=== PATIENT | female | born 1940 | race African-American/Black ===

== ENCOUNTER 2017-01-22 05:12 | Inpatient (IN) | payer MEDICARE, MEDICAID ==
[2017-01-22] VITALS (18 sets, daily range): BP systolic 108–165; BP diastolic 40–93
[~2017-01-22] VITALS: Ht 162.6 cm; Wt 74.4 kg
[~2017-01-22 05:12] MED LIST: BACL-141 PO; BENA20TA3 PO; BUDE6.9H IH; DIGO250T81 PO; DILT240C92 PO; FURO-151 PO; GABA-533 PO; HYDR-3933 PO; INSU3INS8 SQ; LEFL20TA17 PO; LEVA1.2526 NEB; OMEP20CA10 PO; POTA20TA82 PO; PRAV20TA57 PO; PRO-AIR IH; SITA1TAB4 PO; TIOT18CA3 IH; WARF4TAB40 PO
[2017-01-22] MEDS ORDERED: ONDANSETRON HCL 4MG/2ML VIAL IV STA (05:26)
[2017-01-22] MEDS ORDERED: SODIUM CHLORIDE 0.9% 1,000 ML IV ONE (05:26)
[2017-01-22] MEDS ORDERED: ASPIRIN 81MG TABLET PO ONE (05:30)
[2017-01-22] MEDS ORDERED: NITROGLYCERIN OINT 1GM/INCH UDPKT TD ONE (05:30)
[2017-01-22] MEDS ORDERED: DILTIAZEM HCL 5MG/ML 5ML VIAL IV ONE ×2 (05:30→09:15)
[2017-01-22 05:53] LABS: BASOPHILS % 0.8 % (0.0-2.0); DIFFERENTIAL COMMENT 0; EOSINOPHILS % 1.8 % (0.0-5.0); HEMATOCRIT. 38.8 % (36.0-48.0); HEMOGLOBIN. 12.6 g/dL (12.0-16.0); LYMPHOCYTES % 14.8 % (20.0-50.0); MEAN CORPUSCULAR HEMOGLOBIN 28.4 pg (28.0-32.0); MEAN CORPUSCULAR HGB CONC 32.4 g/dL (31.0-37.0); MEAN CORPUSCULAR VOLUME 87.6 fL (81.0-99.0); MEAN PLATELET VOLUME 9.4 fl (7.4-10.4); NEUTROPHILS % 73.6 % (40.0-76.0); PLATELET 286 x1000/uL (130-400); RED BLOOD CELL COUNT 4.43 mill/uL (4.2-5.4); RED CELL DISTRIBUTION WIDTH 15.2 % (11.6-14.6); WHITE BLOOD COUNT 15.7 x1000/uL (4.5-11.0)
[2017-01-22 06:12] LABS: ALANINE AMINOTRANSFERASE 23 IU/L (13-61); ALBUMIN 2.8 g/dL (3.4-5.0); ANION GAP 16; CALCIUM 8.7 mg/dL (8.5-10.1); CARBON DIOXIDE 30 mEq/L (21-32); CHLORIDE 96 mEq/L (98-107); ETHANOL BLOOD < 10 mg/dL; INDEX HEMOLYSI 1 (1-3); INDEX ICTERIC 1 (1-4); INDEX LIPEMIC 1 (1-3); LIPASE 72 IU/L (73-393); TROPONIN I < 0.02 ng/mL (0.00-0.04); UREA NITROGEN BLOOD 9 mg/dL (7-21); eGFR > 60 mL/min (>60)
[2017-01-22 06:18] LABS: BG BASE EXCESS 2.2 mmol/L (-2.0-2.0); BG CARBOXYHEMOGLOBIN 1.3 % (0.5-1.5); BG FRACTION INSPIRED OXYGEN 32; BG METHEMOGLOBIN 0.3 % (0.0-1.5); BG OXYGEN SATURATION 95.9 % (92.0-98.5); BG OXYHEMOGLOBIN 94.4 % (94.0-97.0); BG PCO2 47.8 mmHg (35.0-45.0); BG PH 7.385 (7.350-7.450); BG PO2 82.7 mmHg (75.0-100.0); BG SAMPLE SITE RIGHT BRACHIAL; BG TOTAL HEMOGLOBIN 13.6 g/dL (12.0-18.0); BG VENT MODE NASAL CANNULA
[2017-01-22 06:23] LABS: DIGOXIN 0.7 ng/mL (0.9-2.0)
[2017-01-22 06:29] LABS: INR 1.8; PROTHROMBIN TIME 19.2 sec
[2017-01-22 07:13] LABS: CLARITY URINE CLOUDY (CLEAR); COLOR URINE YELLOW (YELLOW); GLUCOSE URINE NEGATIVE (NEGATIVE); KETONES URINE TRACE (NEGATIVE); LEUKOCYTE ESTERASE URINE 3+ (NEGATIVE); NITRITE URINE NEGATIVE (NEGATIVE); OCCULT BLOOD URINE 1+ (NEGATIVE); PROTEIN URINE 2+ (NEGATIVE); SPECIFIC GRAVITY URINE 1.025 (1.005-1.030)
[2017-01-22] MEDS ORDERED: IPRATROPIUM/ALBUTEROL 0.5-3(2.5)MG/3ML NEB HHN ONE ×2 (07:15→09:15)
[2017-01-22] MEDS ORDERED: METHYLPREDNISOLONE SOD SUCC 125 MG/2 ML VIAL IV ONE (07:15)
[2017-01-22 07:26] LABS: *AMPHETAMINES SCREEN URINE NEGATIVE (NEGATIVE); *BARBITURATES SCREEN URINE NEGATIVE (NEGATIVE); *BENZODIAZEPINES SCREEN URINE NEGATIVE (NEGATIVE); *COCAINE SCREEN URINE NEGATIVE (NEGATIVE); CANNABINOID URINE SCREEN NEGATIVE (NEGATIVE); ECSTASY MDMA SCREEN URINE NEGATIVE (NEGATIVE); METHADONE URINE SCREEN NEGATIVE (NEGATIVE); OPIATES URINE SCREEN PRESUMTIVE POSITIVE (NEGATIVE); PHENCYCLIDINE URINE SCREEN NEGATIVE (NEGATIVE)
[2017-01-22 07:31] LABS: SQUAMOUS EPITHELIAL CELL URINE FEW /lpf (RARE/1+); WBC URINE TNTC /hpf (0-2)
[2017-01-22 07:32] LABS: BACTERIA URINE 3+
[2017-01-22] MEDS ORDERED: FUROSEMIDE 40MG/4ML VIAL IVP ONE (09:45)
[2017-01-22 11:03] LABS: BG BASE EXCESS 0.5 mmol/L (-2.0-2.0); BG BILEVEL POS AIRWAY PRESSURE 15/5; BG CARBOXYHEMOGLOBIN 0.8 % (0.5-1.5); BG DEOXYHEMOGLOBIN 2.2 % (0.0-5.0); BG FRACTION INSPIRED OXYGEN 40; BG HCO3 ACT 27.3 mmol/L (22.0-26.0); BG METHEMOGLOBIN 0.3 % (0.0-1.5); BG OXYGEN SATURATION 97.8 % (92.0-98.5); BG OXYHEMOGLOBIN 96.7 % (94.0-97.0); BG PCO2 53.5 mmHg (35.0-45.0); BG PH 7.326 (7.350-7.450); BG PO2 115.3 mmHg (75.0-100.0); BG SAMPLE SITE RIGHT BRACHIAL; BG TOTAL HEMOGLOBIN 12.9 g/dL (12.0-18.0); BG VENT MODE MASK - BIPAP
[2017-01-22] MEDS ORDERED: DEXTROSE 50% WATER 50ML SYRINGE IV PRN (17:00)
[2017-01-22] MEDS ORDERED: NON FORMULARY PATIENT HOME MED EA XX SCH ×4 (17:00)
[2017-01-22] MEDS: BLOOD SUGAR DIAGNOSTIC STRIP TEST SCH (17:30)
[2017-01-22 18:00] LABS: BG BASE EXCESS 1.5 mmol/L (-2.0-2.0); BG DEOXYHEMOGLOBIN 6.2 % (0.0-5.0); BG FRACTION INSPIRED OXYGEN 50; BG HCO3 ACT 27.9 mmol/L (22.0-26.0); BG METHEMOGLOBIN 0.3 % (0.0-1.5); BG OXYGEN SATURATION 93.7 % (92.0-98.5); BG OXYHEMOGLOBIN 92.5 % (94.0-97.0); BG PCO2 51.1 mmHg (35.0-45.0); BG PH 7.355 (7.350-7.450); BG PO2 72.9 mmHg (75.0-100.0); BG SAMPLE SITE RIGHT BRACHIAL; BG TOTAL HEMOGLOBIN 13.2 g/dL (12.0-18.0); BG VENT MODE MASK - VENTI
[2017-01-22] MEDS ORDERED: LEFLUNOMIDE 20MG TABLET PO SCH (18:30)
[2017-01-22] MEDS: INSULIN LISPRO 100 UNITS/ML SUBCUT SCH (18:43)
[2017-01-22] MEDS: METFORMIN HCL 500MG TABLET PO SCH (18:45)
[2017-01-22] MEDS: DILTIAZEM HCL 60MG TABLET PO SCH ×2 (18:45→23:36)
[2017-01-22] MEDS: WARFARIN SODIUM 4MG TABLET PO SCH (18:45)
[2017-01-22] MEDS: DIGOXIN 125MCG TABLET PO SCH (18:45)
[2017-01-22] MEDS: DOCUSATE SODIUM 100MG CAPSULE PO SCH (18:46)
[2017-01-22] MEDS: IPRATROPIUM/ALBUTEROL 0.5-3(2.5)MG/3ML NEB HHN SCH (20:20)
[2017-01-22] MEDS: BACLOFEN 10MG TABLET PO SCH (21:32)
[2017-01-22] MEDS: ATORVASTATIN CALCIUM 10MG TABLET PO SCH (21:32)
[2017-01-22] MEDS: FUROSEMIDE 40MG/4ML VIAL IVP SCH (21:38)
[2017-01-22] MEDS: LEVOFLOXACIN 500MG PREMIX 100 ML IV SCH (23:31)
[2017-01-23] VITALS (11 sets, daily range): BP systolic 85–154; BP diastolic 43–78
[2017-01-23] MEDS: IPRATROPIUM/ALBUTEROL 0.5-3(2.5)MG/3ML NEB HHN SCH ×5 (00:15→20:08)
[2017-01-23] MEDS: DILTIAZEM HCL 60MG TABLET PO SCH ×3 (06:00→17:05)
[2017-01-23 06:35] LABS: GLUCOSE URINE 3+ (NEGATIVE); KETONES URINE 1+ (NEGATIVE); LEUKOCYTE ESTERASE URINE 3+ (NEGATIVE); NITRITE URINE NEGATIVE (NEGATIVE); OCCULT BLOOD URINE 2+ (NEGATIVE); PH URINE 5.5 (4.5-8.0); PROTEIN URINE 2+ (NEGATIVE); UROBILINOGEN URINE 0.2 E.U./dL (0.2-1.0)
[2017-01-23 06:36] LABS: CLARITY URINE CLOUDY (CLEAR); COLOR URINE YELLOW (YELLOW)
[2017-01-23 06:36] LABS: PROTHROMBIN TIME 20.6 sec
[2017-01-23 06:38] LABS: BASOPHILS % 0.8 % (0.0-2.0); HEMATOCRIT. 36.8 % (36.0-48.0); HEMOGLOBIN. 11.9 g/dL (12.0-16.0); LYMPHOCYTES % 11.4 % (20.0-50.0); MEAN CORPUSCULAR HEMOGLOBIN 28.1 pg (28.0-32.0); MEAN CORPUSCULAR HGB CONC 32.2 g/dL (31.0-37.0); MEAN CORPUSCULAR VOLUME 87.1 fL (81.0-99.0); MEAN PLATELET VOLUME 9.6 fl (7.4-10.4); MONOCYTES % 8.9 % (2.0-8.0); NEUTROPHILS % 78.9 % (40.0-76.0); PLATELET 329 x1000/uL (130-400); RED BLOOD CELL COUNT 4.22 mill/uL (4.2-5.4); RED CELL DISTRIBUTION WIDTH 15.1 % (11.6-14.6); WHITE BLOOD COUNT 12.6 x1000/uL (4.5-11.0)
[2017-01-23 07:10] LABS: CHLORIDE 99 mEq/L (98-107); INDEX HEMOLYSI 1 (1-3); INDEX ICTERIC 1 (1-4); INDEX LIPEMIC 1 (1-3)
[2017-01-23 07:21] LABS: SQUAMOUS EPITHELIAL CELL URINE FEW /lpf (RARE/1+)
[2017-01-23 07:22] LABS: WBC URINE TNTC /hpf (0-2)
[2017-01-23 07:23] LABS: BACTERIA URINE 4+
[2017-01-23 07:26] LABS: ANION GAP 14; CALCIUM 8.8 mg/dL (8.5-10.1); CARBON DIOXIDE 30 mEq/L (21-32); T3 FREE 1.66 pg/ml (2.18-3.98); T4 FREE 1.46 ng/dL (0.76-1.46); THYROID STIMULATING HORMONE 0.07 uIU/mL (0.36-3.74); UREA NITROGEN BLOOD 16 mg/dL (7-21); eGFR > 60 mL/min (>60)
[2017-01-23] MEDS: BLOOD SUGAR DIAGNOSTIC STRIP TEST SCH ×2 (08:00→17:45)
[2017-01-23] MEDS: OMEPRAZOLE 20MG CAPSULE EXTENDED RELEASE PO SCH (08:27)
[2017-01-23] MEDS: GABAPENTIN 300MG CAPSULE PO SCH (08:27)
[2017-01-23] MEDS: METFORMIN HCL 500MG TABLET PO SCH ×2 (08:27→17:05)
[2017-01-23] MEDS: POTASSIUM CHLORIDE 20MEQ TABLET SR PO SCH (08:27)
[2017-01-23] MEDS: DOCUSATE SODIUM 100MG CAPSULE PO SCH ×2 (08:27→17:05)
[2017-01-23] MEDS: LINAGLIPTIN 5MG TABLET PO SCH (08:27)
[2017-01-23] MEDS: BACLOFEN 10MG TABLET PO SCH ×2 (08:27→21:26)
[2017-01-23] MEDS: FUROSEMIDE 40MG/4ML VIAL IVP SCH ×2 (08:28→21:26)
[2017-01-23] MEDS: INSULIN LISPRO 100 UNITS/ML SUBCUT SCH ×2 (08:33→17:51)
[2017-01-23] MEDS: HYDROCODONE/ACETAMINOPHEN 10/325MG TABLET PO PRN ×2 (08:40→21:28)
[2017-01-23] MEDS: LEFLUNOMIDE 10 MG PO SCH (13:03)
[2017-01-23] MEDS: DIGOXIN 125MCG TABLET PO SCH (17:05)
[2017-01-23] MEDS: WARFARIN SODIUM 4MG TABLET PO SCH (17:07)
[2017-01-23] MEDS: ATORVASTATIN CALCIUM 10MG TABLET PO SCH (21:26)
[2017-01-23] MEDS: LEVOFLOXACIN 500MG PREMIX 100 ML IV SCH (23:33)
[2017-01-24] VITALS (15 sets, daily range): BP systolic 89–189; BP diastolic 50–99
[2017-01-24] MEDS: DILTIAZEM HCL 60MG TABLET PO SCH ×5 (00:25→17:55)
[2017-01-24] MEDS: IPRATROPIUM/ALBUTEROL 0.5-3(2.5)MG/3ML NEB HHN SCH ×3 (00:51→20:20)
[2017-01-24 06:49] LABS: INR 2.4; PROTHROMBIN TIME 25.4 sec
[2017-01-24] MEDS: BLOOD SUGAR DIAGNOSTIC STRIP TEST SCH ×2 (07:30→17:31)
[2017-01-24] MEDS: IPRATROPIUM/ALBUTEROL 0.5-3(2.5)MG/3ML NEB HHN PRN (08:25)
[2017-01-24] MEDS: LEFLUNOMIDE 10 MG PO SCH (08:46)
[2017-01-24] MEDS: METFORMIN HCL 500MG TABLET PO SCH ×2 (08:51→17:14)
[2017-01-24] MEDS: OMEPRAZOLE 20MG CAPSULE EXTENDED RELEASE PO SCH (08:52)
[2017-01-24] MEDS: FUROSEMIDE 40MG/4ML VIAL IVP SCH ×2 (08:52→21:00)
[2017-01-24] MEDS: GABAPENTIN 300MG CAPSULE PO SCH (08:52)
[2017-01-24] MEDS: BACLOFEN 10MG TABLET PO SCH ×2 (08:52→21:00)
[2017-01-24] MEDS: LINAGLIPTIN 5MG TABLET PO SCH (08:52)
[2017-01-24] MEDS: POTASSIUM CHLORIDE 20MEQ TABLET SR PO SCH (08:52)
[2017-01-24] MEDS: DOCUSATE SODIUM 100MG CAPSULE PO SCH ×2 (08:52→17:14)
[2017-01-24] MEDS: INSULIN LISPRO 100 UNITS/ML SUBCUT SCH ×2 (09:18→17:30)
[2017-01-24] MEDS: DIGOXIN 125MCG TABLET PO SCH (17:14)
[2017-01-24] MEDS: WARFARIN SODIUM 4MG TABLET PO SCH (17:14)
[2017-01-24] MEDS: ATORVASTATIN CALCIUM 10MG TABLET PO SCH (21:00)
[2017-01-24] MEDS: CEFTRIAXONE 1 G PREMIX 50 ML IV SCH (23:14)
[2017-01-25] VITALS (14 sets, daily range): BP systolic 100–194; BP diastolic 47–186
[2017-01-25] MEDS: DILTIAZEM HCL 90MG TABLET PO SCH ×5 (00:19→23:04)
[2017-01-25] MEDS ORDERED: DILTIAZEM HCL 90MG TABLET PO SCH (02:00)
[2017-01-25] MEDS: IPRATROPIUM/ALBUTEROL 0.5-3(2.5)MG/3ML NEB HHN SCH ×4 (02:21→20:38)
[2017-01-25 06:08] LABS: HEMATOCRIT. 40.6 % (36.0-48.0); HEMOGLOBIN. 13.1 g/dL (12.0-16.0); MEAN CORPUSCULAR HEMOGLOBIN 28.2 pg (28.0-32.0); MEAN CORPUSCULAR HGB CONC 32.3 g/dL (31.0-37.0); MEAN CORPUSCULAR VOLUME 87.5 fL (81.0-99.0); MEAN PLATELET VOLUME 9.4 fl (7.4-10.4); PLATELET 321 x1000/uL (130-400); RED BLOOD CELL COUNT 4.65 mill/uL (4.2-5.4); RED CELL DISTRIBUTION WIDTH 15.1 % (11.6-14.6); WHITE BLOOD COUNT 10.5 x1000/uL (4.5-11.0)
[2017-01-25 06:09] LABS: PROTHROMBIN TIME 21.4 sec
[2017-01-25 06:44] LABS: DIFFERENTIAL COMMENT 1
[2017-01-25 07:01] LABS: CHLORIDE 95 mEq/L (98-107); INDEX HEMOLYSI 1 (1-3); INDEX ICTERIC 1 (1-4); INDEX LIPEMIC 1 (1-3)
[2017-01-25 07:10] LABS: ANION GAP 15; CALCIUM 9.2 mg/dL (8.5-10.1); CARBON DIOXIDE 33 mEq/L (21-32); MAGNESIUM 1.7 mg/dL (1.8-2.4); PHOSPHORUS 2.5 mg/dL (2.5-4.9); UREA NITROGEN BLOOD 18 mg/dL (7-21); eGFR > 60 mL/min (>60)
[2017-01-25 07:26] LABS: ANISOCYTOSIS 1+; PLATELET ESTIMATE NORMAL
[2017-01-25] MEDS: BLOOD SUGAR DIAGNOSTIC STRIP TEST SCH ×2 (08:09→18:28)
[2017-01-25] MEDS: METFORMIN HCL 500MG TABLET PO SCH ×2 (08:33→21:03)
[2017-01-25] MEDS: INSULIN LISPRO 100 UNITS/ML SUBCUT SCH ×2 (08:34→18:23)
[2017-01-25] MEDS: GABAPENTIN 300MG CAPSULE PO SCH (09:39)
[2017-01-25] MEDS: FUROSEMIDE 40MG/4ML VIAL IVP SCH ×2 (09:39→21:03)
[2017-01-25] MEDS: LINAGLIPTIN 5MG TABLET PO SCH (09:39)
[2017-01-25] MEDS: POTASSIUM CHLORIDE 20MEQ TABLET SR PO SCH (09:39)
[2017-01-25] MEDS: BACLOFEN 10MG TABLET PO SCH ×2 (09:39→21:04)
[2017-01-25] MEDS: DOCUSATE SODIUM 100MG CAPSULE PO SCH ×2 (09:39→18:14)
[2017-01-25] MEDS: FAMOTIDINE 20MG TABLET PO SCH ×2 (09:39→18:15)
[2017-01-25] MEDS: LEFLUNOMIDE 10 MG PO SCH (09:45)
[2017-01-25] MEDS: LACTULOSE 20G/30ML UDC PO SCH (09:46)
[2017-01-25] MEDS: HYDROCODONE/ACETAMINOPHEN 10/325MG TABLET PO PRN (15:54)
[2017-01-25] MEDS: WARFARIN SODIUM 4MG TABLET PO SCH (18:15)
[2017-01-25] MEDS ORDERED: LEVOFLOXACIN 500MG TABLET PO SCH (21:00)
[2017-01-25] MEDS: ATORVASTATIN CALCIUM 10MG TABLET PO SCH (21:04)
[2017-01-25] MEDS: DIGOXIN 125MCG TABLET PO SCH (21:04)
[2017-01-25] MEDS: CEFTRIAXONE 1 G PREMIX 50 ML IV SCH (23:04)
[2017-01-26] VITALS (16 sets, daily range): BP systolic 108–153; BP diastolic 43–94
[2017-01-26] MEDS: IPRATROPIUM/ALBUTEROL 0.5-3(2.5)MG/3ML NEB HHN SCH ×4 (02:24→20:49)
[2017-01-26] MEDS: DILTIAZEM HCL 90MG TABLET PO SCH ×4 (05:02→23:25)
[2017-01-26 06:31] LABS: INR 1.8; PROTHROMBIN TIME 18.3 sec
[2017-01-26] MEDS: BLOOD SUGAR DIAGNOSTIC STRIP TEST SCH ×2 (08:13→17:49)
[2017-01-26] MEDS: POTASSIUM CHLORIDE 20MEQ TABLET SR PO SCH (08:33)
[2017-01-26] MEDS: GABAPENTIN 300MG CAPSULE PO SCH (08:33)
[2017-01-26] MEDS: METFORMIN HCL 500MG TABLET PO SCH ×2 (08:33→17:49)
[2017-01-26] MEDS: FUROSEMIDE 40MG/4ML VIAL IVP SCH ×2 (08:33→20:09)
[2017-01-26] MEDS: LINAGLIPTIN 5MG TABLET PO SCH (08:33)
[2017-01-26] MEDS: FAMOTIDINE 20MG TABLET PO SCH ×2 (08:33→17:49)
[2017-01-26] MEDS: BACLOFEN 10MG TABLET PO SCH ×2 (08:33→20:09)
[2017-01-26] MEDS: INSULIN LISPRO 100 UNITS/ML SUBCUT SCH ×2 (08:34→17:50)
[2017-01-26] MEDS: LEFLUNOMIDE 10 MG PO SCH (08:34)
[2017-01-26] MEDS: DOCUSATE SODIUM 100MG CAPSULE PO SCH ×2 (09:00→16:16)
[2017-01-26] MEDS: LACTULOSE 20G/30ML UDC PO SCH (09:00)
[2017-01-26] MEDS: HYDROCODONE/ACETAMINOPHEN 10/325MG TABLET PO PRN (09:38)
[2017-01-26] MEDS ORDERED: MAGNESIUM 2 G PREMIX 50 ML IV NR (17:00)
[2017-01-26] MEDS: WARFARIN SODIUM 4MG TABLET PO SCH (17:49)
[2017-01-26] MEDS: DIGOXIN 125MCG TABLET PO SCH (17:49)
[2017-01-26] MEDS: ATORVASTATIN CALCIUM 10MG TABLET PO SCH (20:09)
[2017-01-26] MEDS: CEFTRIAXONE 1 G PREMIX 50 ML IV SCH (22:33)
[2017-01-27] VITALS (10 sets, daily range): BP systolic 98–135; BP diastolic 50–83
[2017-01-27] MEDS: IPRATROPIUM/ALBUTEROL 0.5-3(2.5)MG/3ML NEB HHN SCH ×4 (01:59→20:53)
[2017-01-27] MEDS: DILTIAZEM HCL 90MG TABLET PO SCH ×3 (05:14→17:36)
[2017-01-27 05:50] LABS: INR 1.5; PROTHROMBIN TIME 16.2 sec
[2017-01-27 06:23] LABS: ANION GAP 13; CALCIUM 9.2 mg/dL (8.5-10.1); CARBON DIOXIDE 31 mEq/L (21-32); CHLORIDE 97 mEq/L (98-107); INDEX HEMOLYSI 1 (1-3); INDEX ICTERIC 1 (1-4); INDEX LIPEMIC 1 (1-3); MAGNESIUM 1.9 mg/dL (1.8-2.4); PHOSPHORUS 2.8 mg/dL (2.5-4.9); UREA NITROGEN BLOOD 18 mg/dL (7-21); eGFR > 60 mL/min (>60)
[2017-01-27 06:38] LABS: HEMATOCRIT. 40.8 % (36.0-48.0); HEMOGLOBIN. 13.2 g/dL (12.0-16.0); MEAN CORPUSCULAR HEMOGLOBIN 28.4 pg (28.0-32.0); MEAN CORPUSCULAR HGB CONC 32.4 g/dL (31.0-37.0); MEAN CORPUSCULAR VOLUME 87.7 fL (81.0-99.0); MEAN PLATELET VOLUME 9.1 fl (7.4-10.4); PLATELET 325 x1000/uL (130-400); RED BLOOD CELL COUNT 4.65 mill/uL (4.2-5.4); RED CELL DISTRIBUTION WIDTH 14.6 % (11.6-14.6); WHITE BLOOD COUNT 10.8 x1000/uL (4.5-11.0)
[2017-01-27 06:55] LABS: DIFFERENTIAL COMMENT 1
[2017-01-27] MEDS: BLOOD SUGAR DIAGNOSTIC STRIP TEST SCH ×2 (08:04→17:31)
[2017-01-27] MEDS: METFORMIN HCL 500MG TABLET PO SCH ×2 (08:05→17:31)
[2017-01-27] MEDS: INSULIN LISPRO 100 UNITS/ML SUBCUT SCH ×2 (08:06→17:40)
[2017-01-27] MEDS: LINAGLIPTIN 5MG TABLET PO SCH (09:00)
[2017-01-27] MEDS: POTASSIUM CHLORIDE 20MEQ TABLET SR PO SCH (09:00)
[2017-01-27] MEDS: LACTULOSE 20G/30ML UDC PO SCH (09:00)
[2017-01-27] MEDS: DOCUSATE SODIUM 100MG CAPSULE PO SCH ×2 (09:00→17:30)
[2017-01-27] MEDS: FUROSEMIDE 40MG/4ML VIAL IVP SCH ×2 (09:00→20:43)
[2017-01-27] MEDS: LEFLUNOMIDE 10 MG PO SCH (09:58)
[2017-01-27] MEDS: BACLOFEN 10MG TABLET PO SCH ×2 (09:58→20:43)
[2017-01-27] MEDS: GABAPENTIN 300MG CAPSULE PO SCH (09:58)
[2017-01-27] MEDS: FAMOTIDINE 20MG TABLET PO SCH ×2 (09:58→17:30)
[2017-01-27] MEDS: HYDROCODONE/ACETAMINOPHEN 10/325MG TABLET PO PRN (09:59)
[2017-01-27 10:50] LABS: PLATELET ESTIMATE NORMAL
[2017-01-27] MEDS: DIGOXIN 125MCG TABLET PO SCH (17:31)
[2017-01-27] MEDS: IPRATROPIUM/ALBUTEROL 0.5-3(2.5)MG/3ML NEB HHN PRN (17:54)
[2017-01-27] MEDS: WARFARIN SODIUM 4MG TABLET PO SCH (18:20)
[2017-01-27] MEDS: ATORVASTATIN CALCIUM 10MG TABLET PO SCH (20:43)
== END 2017-01-27 21:25 | DRG 291 ==
LOC: ER 05:15 → 5EST 10:58
PROVIDERS: ADMIT Internal Medicine; ATTEND Internal Medicine
PROC: 5A09357 Assistance with Respiratory Ventilation, Less than 24 Consecutive Hours, Continuous Positive Airway Pressure (ICD-10-PCS; principal; 2017-01-22)
DX: I11.0 Hypertensive heart disease with heart failure (principal); J96.00 Acute respiratory failure, unspecified whether with hypoxia or hypercapnia; J44.1 Chronic obstructive pulmonary disease with (acute) exacerbation; N39.0 Urinary tract infection, site not specified; E44.1 Mild protein-calorie malnutrition; M48.56XA Collapsed vertebra, not elsewhere classified, lumbar region, initial encounter for fracture; I50.43 Acute on chronic combined systolic (congestive) and diastolic (congestive) heart failure; E11.40 Type 2 diabetes mellitus with diabetic neuropathy, unspecified; E86.0 Dehydration; G89.4 Chronic pain syndrome; M54.5 Low back pain; R26.9 Unspecified abnormalities of gait and mobility; M47.817 Spondylosis without myelopathy or radiculopathy, lumbosacral region; M19.90 Unspecified osteoarthritis, unspecified site; L89.899 Pressure ulcer of other site, unspecified stage; I48.0 Paroxysmal atrial fibrillation; I48.2 Chronic atrial fibrillation; Z79.01 Long term (current) use of anticoagulants; Z79.84 Long term (current) use of oral hypoglycemic drugs; Z87.891 Personal history of nicotine dependence; Z95.5 Presence of coronary angioplasty implant and graft; Z99.81 Dependence on supplemental oxygen; Z68.28 Body mass index [BMI] 28.0-28.9, adult
CPT/HCPCS: 36415; 36600; 51702; 71010; 71250; 80048; 80053; 80162; 80305; 81001; 82375; 82805; 82962; 83690; 83735; 83880; 84100; 84439; 84443; 84481; 84484; 85025; 85610; 87070; 87077; 87086; 87186; 93005; 93306; 94640; 94660; 96361; 96374; 96375; 97116; 97163; 99285; A6261; C1893; G0482; J0696; J1815; J1940; J1956; J2405; J2930; J3475; J3490; J7030; J7040; J7620

== ENCOUNTER 2017-01-27 21:30 | Inpatient (IN) | payer MEDICARE, MEDICAID ==
[~2017-01-27] VITALS: Ht 167.6 cm; Wt 74.4 kg
[2017-01-27 22:05] VITALS: BP 112/58
[2017-01-27] MEDS ORDERED: LACTULOSE 20G/30ML UDC PO PRN (22:15)
[2017-01-27] MEDS ORDERED: DEXTROSE 50% WATER 50ML SYRINGE IV PRN ×2 (22:15→22:30)
[2017-01-27] MEDS: DILTIAZEM HCL 90MG TABLET PO SCH (22:30)
[2017-01-27] MEDS: CEFTRIAXONE 1 G PREMIX 50 ML IV SCH (23:04)
[2017-01-27] MEDS: ATORVASTATIN CALCIUM 10MG TABLET PO SCH (23:57)
[2017-01-28] MEDS: IPRATROPIUM/ALBUTEROL 0.5-3(2.5)MG/3ML NEB HHN SCH ×4 (01:55→22:31)
[2017-01-28] MEDS: DILTIAZEM HCL 90MG TABLET PO SCH ×4 (05:16→23:51)
[2017-01-28 05:17] VITALS: BP 140/67
[2017-01-28] MEDS: BLOOD SUGAR DIAGNOSTIC STRIP TEST SCH ×2 (06:24→17:41)
[2017-01-28] MEDS ORDERED: BLOOD SUGAR DIAGNOSTIC STRIP TEST SCH (06:30)
[2017-01-28] MEDS: INSULIN LISPRO 100 UNITS/ML SUBCUT SCH ×2 (06:34→17:52)
[2017-01-28 06:51] LABS: DIFFERENTIAL COMMENT 0; EOSINOPHILS % 3.1 % (0.0-5.0); HEMATOCRIT. 41.7 % (36.0-48.0); HEMOGLOBIN. 13.4 g/dL (12.0-16.0); LYMPHOCYTES % 30.5 % (20.0-50.0); MEAN CORPUSCULAR HEMOGLOBIN 28.2 pg (28.0-32.0); MEAN CORPUSCULAR HGB CONC 32.2 g/dL (31.0-37.0); MEAN CORPUSCULAR VOLUME 87.6 fL (81.0-99.0); MEAN PLATELET VOLUME 9.1 fl (7.4-10.4); MONOCYTES % 6.7 % (2.0-8.0); NEUTROPHILS % 58.7 % (40.0-76.0); PLATELET 344 x1000/uL (130-400); RED BLOOD CELL COUNT 4.76 mill/uL (4.2-5.4); RED CELL DISTRIBUTION WIDTH 14.9 % (11.6-14.6); WHITE BLOOD COUNT 11.1 x1000/uL (4.5-11.0)
[2017-01-28 06:52] LABS: INR 1.5; PROTHROMBIN TIME 15.3 sec
[2017-01-28] MEDS ORDERED: INSULIN LISPRO 100 UNITS/ML SUBCUT SCH (07:00)
[2017-01-28 07:20] LABS: ALANINE AMINOTRANSFERASE 14 IU/L (13-61); ALBUMIN 2.8 g/dL (3.4-5.0); ANION GAP 11; CARBON DIOXIDE 36 mEq/L (21-32); CHLORIDE 94 mEq/L (98-107); INDEX HEMOLYSI 1 (1-3); INDEX ICTERIC 1 (1-4); INDEX LIPEMIC 1 (1-3); MAGNESIUM 1.8 mg/dL (1.8-2.4); PHOSPHORUS 2.9 mg/dL (2.5-4.9); UREA NITROGEN BLOOD 20 mg/dL (7-21); eGFR > 60 mL/min (>60)
[2017-01-28 08:00] VITALS: BP 120/84
[2017-01-28] MEDS ORDERED: LEFLUNOMIDE 20MG TABLET PO SCH (09:00)
[2017-01-28] MEDS ORDERED: LEFLUNOMIDE 10 MG PO SCH (09:00)
[2017-01-28] MEDS ORDERED: DOCUSATE SODIUM 100MG CAPSULE PO SCH (09:00)
[2017-01-28] MEDS: FUROSEMIDE 40MG TABLET PO SCH (09:43)
[2017-01-28] MEDS: DOCUSATE SODIUM 100MG CAPSULE PO SCH ×2 (09:43→17:37)
[2017-01-28] MEDS: METFORMIN HCL 500MG TABLET PO SCH ×2 (09:43→17:37)
[2017-01-28] MEDS: BACLOFEN 10MG TABLET PO SCH ×2 (09:43→20:27)
[2017-01-28] MEDS: POTASSIUM CHLORIDE 20MEQ TABLET SR PO SCH (09:43)
[2017-01-28] MEDS: GABAPENTIN 300MG CAPSULE PO SCH (09:43)
[2017-01-28] MEDS: FAMOTIDINE 20MG TABLET PO SCH ×2 (09:43→17:49)
[2017-01-28] MEDS: IPRATROPIUM/ALBUTEROL 0.5-3(2.5)MG/3ML NEB HHN PRN (11:30)
[2017-01-28] MEDS: LINAGLIPTIN 5MG TABLET PO SCH (11:45)
[2017-01-28] MEDS: HYDROCODONE/ACETAMINOPHEN 10/325MG TABLET PO PRN (12:32)
[2017-01-28] MEDS: DIGOXIN 125MCG TABLET PO SCH (17:38)
[2017-01-28] MEDS: WARFARIN SODIUM 4MG TABLET PO SCH (17:41)
[2017-01-28 20:00] VITALS: BP 116/80
[2017-01-28] MEDS: SULFAMETHOXAZOLE/TRIMETHOPRIM 800/160MG TABLET PO SCH (20:27)
[2017-01-28] MEDS: ATORVASTATIN CALCIUM 10MG TABLET PO SCH (20:27)
[2017-01-28] MEDS ORDERED: ATORVASTATIN CALCIUM 10MG TABLET PO SCH ×2 (21:00)
[2017-01-28] MEDS: CEFTRIAXONE 1 G PREMIX 50 ML IV SCH (23:04)
[2017-01-29] MEDS: IPRATROPIUM/ALBUTEROL 0.5-3(2.5)MG/3ML NEB HHN SCH ×4 (02:04→20:04)
[2017-01-29] MEDS: HYDROCODONE/ACETAMINOPHEN 10/325MG TABLET PO PRN (05:08)
[2017-01-29 06:17] LABS: INR 2.3; PROTHROMBIN TIME 24.1 sec
[2017-01-29] MEDS: BLOOD SUGAR DIAGNOSTIC STRIP TEST SCH ×2 (06:26→16:36)
[2017-01-29] MEDS: DILTIAZEM HCL 90MG TABLET PO SCH ×4 (06:31→23:42)
[2017-01-29] MEDS: INSULIN LISPRO 100 UNITS/ML SUBCUT SCH ×2 (06:32→17:51)
[2017-01-29 08:02] VITALS: BP 110/72
[2017-01-29] MEDS: GABAPENTIN 300MG CAPSULE PO SCH (09:27)
[2017-01-29] MEDS: POTASSIUM CHLORIDE 20MEQ TABLET SR PO SCH (09:27)
[2017-01-29] MEDS: FUROSEMIDE 40MG TABLET PO SCH (09:27)
[2017-01-29] MEDS: METFORMIN HCL 500MG TABLET PO SCH ×2 (09:27→16:35)
[2017-01-29] MEDS: LINAGLIPTIN 5MG TABLET PO SCH (09:27)
[2017-01-29] MEDS: BACLOFEN 10MG TABLET PO SCH ×2 (09:27→20:35)
[2017-01-29] MEDS: DOCUSATE SODIUM 100MG CAPSULE PO SCH ×2 (09:27→16:36)
[2017-01-29] MEDS: FAMOTIDINE 20MG TABLET PO SCH ×2 (09:28→16:36)
[2017-01-29] MEDS: SULFAMETHOXAZOLE/TRIMETHOPRIM 800/160MG TABLET PO SCH ×2 (09:28→20:35)
[2017-01-29] MEDS: LEFLUNOMIDE 20MG TABLET PO SCH (09:37)
[2017-01-29] MEDS: DIGOXIN 125MCG TABLET PO SCH (18:57)
[2017-01-29] MEDS: WARFARIN SODIUM 4MG TABLET PO SCH (18:57)
[2017-01-29 20:00] VITALS: BP 131/65
[2017-01-29] MEDS: ATORVASTATIN CALCIUM 10MG TABLET PO SCH (20:35)
[2017-01-29] MEDS: CEFTRIAXONE 1 G PREMIX 50 ML IV SCH (22:45)
[2017-01-30] MEDS: IPRATROPIUM/ALBUTEROL 0.5-3(2.5)MG/3ML NEB HHN SCH ×4 (01:21→20:27)
[2017-01-30] MEDS: DILTIAZEM HCL 90MG TABLET PO SCH ×3 (06:17→18:08)
[2017-01-30] MEDS: HYDROCODONE/ACETAMINOPHEN 10/325MG TABLET PO PRN (06:18)
[2017-01-30 06:28] LABS: INR 1.5
[2017-01-30] MEDS: INSULIN LISPRO 100 UNITS/ML SUBCUT SCH ×2 (06:44→18:10)
[2017-01-30] MEDS: BLOOD SUGAR DIAGNOSTIC STRIP TEST SCH ×2 (06:44→17:09)
[2017-01-30 08:03] VITALS: BP 120/58
[2017-01-30] MEDS: LINAGLIPTIN 5MG TABLET PO SCH (09:25)
[2017-01-30] MEDS: LEFLUNOMIDE 20MG TABLET PO SCH (09:25)
[2017-01-30] MEDS: GABAPENTIN 300MG CAPSULE PO SCH (09:25)
[2017-01-30] MEDS: NYSTATIN POWDER 15GM TOP SCH ×2 (09:25→18:10)
[2017-01-30] MEDS: BACLOFEN 10MG TABLET PO SCH ×2 (09:25→20:59)
[2017-01-30] MEDS: FAMOTIDINE 20MG TABLET PO SCH ×2 (09:26→18:08)
[2017-01-30] MEDS: FUROSEMIDE 40MG TABLET PO SCH (09:26)
[2017-01-30] MEDS: METFORMIN HCL 500MG TABLET PO SCH ×2 (09:26→18:08)
[2017-01-30] MEDS: SULFAMETHOXAZOLE/TRIMETHOPRIM 800/160MG TABLET PO SCH ×2 (09:26→20:59)
[2017-01-30] MEDS: DOCUSATE SODIUM 100MG CAPSULE PO SCH ×2 (09:26→18:06)
[2017-01-30] MEDS: POTASSIUM CHLORIDE 20MEQ TABLET SR PO SCH (09:26)
[2017-01-30] MEDS: ONDANSETRON HCL 4MG/2ML VIAL IV PRN (11:39)
[2017-01-30] MEDS: WARFARIN SODIUM 4MG TABLET PO SCH (18:08)
[2017-01-30] MEDS: DIGOXIN 125MCG TABLET PO SCH (18:08)
[2017-01-30 19:00] VITALS: BP 111/55
[2017-01-30] MEDS: ATORVASTATIN CALCIUM 10MG TABLET PO SCH (20:59)
[2017-01-30] MEDS: CEFTRIAXONE 1 G PREMIX 50 ML IV SCH (23:41)
[2017-01-31] MEDS: IPRATROPIUM/ALBUTEROL 0.5-3(2.5)MG/3ML NEB HHN SCH ×4 (01:04→20:00)
[2017-01-31] MEDS: ACETAMINOPHEN 500MG TABLET PO PRN (01:46)
[2017-01-31] MEDS: DILTIAZEM HCL 90MG TABLET PO SCH ×4 (05:40→17:47)
[2017-01-31] MEDS: HYDROCODONE/ACETAMINOPHEN 10/325MG TABLET PO PRN ×2 (05:41→22:33)
[2017-01-31] MEDS: BLOOD SUGAR DIAGNOSTIC STRIP TEST SCH ×2 (06:21→16:10)
[2017-01-31] MEDS: INSULIN LISPRO 100 UNITS/ML SUBCUT SCH ×2 (06:23→17:56)
[2017-01-31 06:31] LABS: INR 1.4; PROTHROMBIN TIME 15.1 sec
[2017-01-31 08:00] VITALS: BP_SYST 109; BP_DIAS 60; BP_DIAS 69
[2017-01-31] MEDS: BACLOFEN 10MG TABLET PO SCH ×2 (10:19→21:19)
[2017-01-31] MEDS: LINAGLIPTIN 5MG TABLET PO SCH (10:20)
[2017-01-31] MEDS: DOCUSATE SODIUM 100MG CAPSULE PO SCH ×2 (10:20→16:09)
[2017-01-31] MEDS: ONDANSETRON HCL 4MG/2ML VIAL IV PRN (10:20)
[2017-01-31] MEDS: FAMOTIDINE 20MG TABLET PO SCH ×2 (10:20→16:09)
[2017-01-31] MEDS: METFORMIN HCL 500MG TABLET PO SCH ×2 (10:20→16:09)
[2017-01-31] MEDS: FUROSEMIDE 40MG TABLET PO SCH (10:20)
[2017-01-31] MEDS: POTASSIUM CHLORIDE 20MEQ TABLET SR PO SCH (10:20)
[2017-01-31] MEDS: SULFAMETHOXAZOLE/TRIMETHOPRIM 800/160MG TABLET PO SCH ×2 (10:20→21:19)
[2017-01-31] MEDS: GABAPENTIN 300MG CAPSULE PO SCH (10:20)
[2017-01-31] MEDS: NYSTATIN POWDER 15GM TOP SCH ×3 (10:21→22:09)
[2017-01-31] MEDS: LEFLUNOMIDE 20MG TABLET PO SCH (10:22)
[2017-01-31] MEDS: WARFARIN SODIUM 4MG TABLET PO SCH (17:59)
[2017-01-31] MEDS: DIGOXIN 125MCG TABLET PO SCH (17:59)
[2017-01-31] MEDS ORDERED: WARFARIN SODIUM 2MG TABLET PO NR (18:45)
[2017-01-31 20:00] VITALS: BP 109/60
[2017-01-31] MEDS: ATORVASTATIN CALCIUM 10MG TABLET PO SCH (21:00)
[2017-01-31] MEDS: CEFTRIAXONE 1 G PREMIX 50 ML IV SCH (22:09)
[2017-01-31] MEDS: ENOXAPARIN 80MG/0.8ML SYR SUBCUT SCH (22:10)
[2017-02-01 00:50] VITALS: BP 112/65
[2017-02-01] MEDS: IPRATROPIUM/ALBUTEROL 0.5-3(2.5)MG/3ML NEB HHN SCH ×5 (01:25→20:55)
[2017-02-01 06:00] VITALS: BP 100/65
[2017-02-01] MEDS: DILTIAZEM HCL 90MG TABLET PO SCH ×4 (06:00→17:33)
[2017-02-01] MEDS: ACETAMINOPHEN 500MG TABLET PO PRN (06:34)
[2017-02-01] MEDS: BLOOD SUGAR DIAGNOSTIC STRIP TEST SCH ×2 (06:36→16:10)
[2017-02-01] MEDS: INSULIN LISPRO 100 UNITS/ML SUBCUT SCH ×2 (07:00→17:39)
[2017-02-01 08:00] VITALS: BP 121/78
[2017-02-01] MEDS: METFORMIN HCL 500MG TABLET PO SCH ×2 (08:29→16:10)
[2017-02-01] MEDS: LINAGLIPTIN 5MG TABLET PO SCH (08:29)
[2017-02-01] MEDS: SULFAMETHOXAZOLE/TRIMETHOPRIM 800/160MG TABLET PO SCH ×2 (08:29→21:24)
[2017-02-01] MEDS: POTASSIUM CHLORIDE 20MEQ TABLET SR PO SCH (08:29)
[2017-02-01] MEDS: BACLOFEN 10MG TABLET PO SCH ×2 (08:29→21:24)
[2017-02-01] MEDS: FUROSEMIDE 40MG TABLET PO SCH (08:29)
[2017-02-01] MEDS: DOCUSATE SODIUM 100MG CAPSULE PO SCH ×2 (08:29→16:10)
[2017-02-01] MEDS: FAMOTIDINE 20MG TABLET PO SCH ×2 (08:29→16:11)
[2017-02-01] MEDS: LEFLUNOMIDE 20MG TABLET PO SCH (08:29)
[2017-02-01] MEDS: GABAPENTIN 300MG CAPSULE PO SCH (08:29)
[2017-02-01] MEDS: ENOXAPARIN 80MG/0.8ML SYR SUBCUT SCH ×2 (08:32→21:27)
[2017-02-01 09:43] LABS: INR 1.6; PROTHROMBIN TIME 16.3 sec
[2017-02-01] MEDS ORDERED: ONDANSETRON HCL 4MG TABLET PO PRN (10:00)
[2017-02-01] MEDS: NYSTATIN POWDER 15GM TOP SCH (16:18)
[2017-02-01] MEDS: DIGOXIN 125MCG TABLET PO SCH (17:36)
[2017-02-01] MEDS: WARFARIN SODIUM 5MG TABLET PO SCH (17:37)
[2017-02-01 20:00] VITALS: BP 101/57
[2017-02-01] MEDS: ATORVASTATIN CALCIUM 10MG TABLET PO SCH (21:25)
[2017-02-02] MEDS: ACETAMINOPHEN 500MG TABLET PO PRN (00:23)
[2017-02-02] MEDS: IPRATROPIUM/ALBUTEROL 0.5-3(2.5)MG/3ML NEB HHN SCH ×4 (00:55→19:40)
[2017-02-02] MEDS: DILTIAZEM HCL 90MG TABLET PO SCH ×4 (06:00→17:10)
[2017-02-02 06:40] LABS: INR 1.7; PROTHROMBIN TIME 17.5 sec
[2017-02-02] MEDS: INSULIN LISPRO 100 UNITS/ML SUBCUT SCH ×2 (06:58→18:08)
[2017-02-02] MEDS: BLOOD SUGAR DIAGNOSTIC STRIP TEST SCH ×2 (06:58→17:03)
[2017-02-02 08:00] VITALS: BP 106/68
[2017-02-02] MEDS: LEFLUNOMIDE 20MG TABLET PO SCH (08:51)
[2017-02-02] MEDS: NYSTATIN POWDER 15GM TOP SCH ×2 (08:51→18:08)
[2017-02-02] MEDS: GABAPENTIN 300MG CAPSULE PO SCH (08:52)
[2017-02-02] MEDS: DOCUSATE SODIUM 100MG CAPSULE PO SCH ×2 (08:52→18:02)
[2017-02-02] MEDS: FUROSEMIDE 40MG TABLET PO SCH (08:53)
[2017-02-02] MEDS: METFORMIN HCL 500MG TABLET PO SCH ×2 (08:53→18:03)
[2017-02-02] MEDS: LINAGLIPTIN 5MG TABLET PO SCH (08:53)
[2017-02-02] MEDS: BACLOFEN 10MG TABLET PO SCH ×2 (08:53→21:41)
[2017-02-02] MEDS: ENOXAPARIN 80MG/0.8ML SYR SUBCUT SCH ×2 (08:54→21:42)
[2017-02-02] MEDS: POTASSIUM CHLORIDE 20MEQ TABLET SR PO SCH (08:54)
[2017-02-02] MEDS: SULFAMETHOXAZOLE/TRIMETHOPRIM 800/160MG TABLET PO SCH ×2 (08:54→21:41)
[2017-02-02] MEDS: FAMOTIDINE 20MG TABLET PO SCH ×2 (08:54→18:02)
[2017-02-02] MEDS: HYDROCODONE/ACETAMINOPHEN 10/325MG TABLET PO PRN (09:03)
[2017-02-02] MEDS ORDERED: MIDAZOLAM HCL 2 MG/2 ML VIAL ONE (15:36)
[2017-02-02] MEDS ORDERED: CEFAZOLIN SODIUM 1000MG/VIAL ONE (16:46)
[2017-02-02] MEDS ORDERED: PROPOFOL 200MG/20ML VIAL IV ONE ×2 (16:46→16:47)
[2017-02-02] MEDS: DIGOXIN 125MCG TABLET PO SCH (17:11)
[2017-02-02] MEDS: WARFARIN SODIUM 5MG TABLET PO SCH (18:04)
[2017-02-02 20:00] VITALS: BP 106/69
[2017-02-02] MEDS: ATORVASTATIN CALCIUM 10MG TABLET PO SCH (21:41)
[2017-02-03] MEDS: IPRATROPIUM/ALBUTEROL 0.5-3(2.5)MG/3ML NEB HHN SCH ×3 (00:46→13:31)
[2017-02-03] MEDS: HYDROCODONE/ACETAMINOPHEN 10/325MG TABLET PO PRN (04:44)
[2017-02-03] MEDS: DILTIAZEM HCL 90MG TABLET PO SCH ×5 (06:00→21:49)
[2017-02-03] MEDS: BLOOD SUGAR DIAGNOSTIC STRIP TEST SCH ×2 (06:27→17:13)
[2017-02-03] MEDS: INSULIN LISPRO 100 UNITS/ML SUBCUT SCH ×2 (06:27→17:51)
[2017-02-03 06:30] LABS: INR 1.8; PROTHROMBIN TIME 18.7 sec
[2017-02-03 08:00] VITALS: BP 121/62
[2017-02-03] MEDS: FUROSEMIDE 40MG TABLET PO SCH (08:27)
[2017-02-03] MEDS: LINAGLIPTIN 5MG TABLET PO SCH (08:27)
[2017-02-03] MEDS: GABAPENTIN 300MG CAPSULE PO SCH (08:28)
[2017-02-03] MEDS: METFORMIN HCL 500MG TABLET PO SCH ×2 (08:28→17:12)
[2017-02-03] MEDS: BACLOFEN 10MG TABLET PO SCH ×2 (08:28→21:49)
[2017-02-03] MEDS: LEFLUNOMIDE 20MG TABLET PO SCH (08:28)
[2017-02-03] MEDS: FAMOTIDINE 20MG TABLET PO SCH ×2 (08:28→17:12)
[2017-02-03] MEDS: DOCUSATE SODIUM 100MG CAPSULE PO SCH ×2 (08:28→17:12)
[2017-02-03] MEDS: SULFAMETHOXAZOLE/TRIMETHOPRIM 800/160MG TABLET PO SCH ×2 (08:28→21:50)
[2017-02-03] MEDS: POTASSIUM CHLORIDE 20MEQ TABLET SR PO SCH (08:28)
[2017-02-03] MEDS: NYSTATIN POWDER 15GM TOP SCH ×2 (08:29→17:14)
[2017-02-03] MEDS: ENOXAPARIN 80MG/0.8ML SYR SUBCUT SCH ×2 (08:30→21:49)
[2017-02-03 12:00] VITALS: BP 95/57
[2017-02-03] MEDS: DIGOXIN 125MCG TABLET PO SCH (17:12)
[2017-02-03] MEDS ORDERED: WARFARIN SODIUM 3MG TABLET PO SCH (18:00)
[2017-02-03] MEDS: IPRATROPIUM/ALBUTEROL 0.5-3(2.5)MG/3ML NEB HHN PRN ×2 (18:24→21:34)
[2017-02-03 20:00] VITALS: BP 118/57
[2017-02-03] MEDS: ATORVASTATIN CALCIUM 10MG TABLET PO SCH (21:49)
[2017-02-04] MEDS: IPRATROPIUM/ALBUTEROL 0.5-3(2.5)MG/3ML NEB HHN SCH ×4 (00:59→21:55)
[2017-02-04] MEDS: DILTIAZEM HCL 90MG TABLET PO SCH (06:00)
[2017-02-04] MEDS: BLOOD SUGAR DIAGNOSTIC STRIP TEST SCH ×2 (06:10→16:31)
[2017-02-04] MEDS: INSULIN LISPRO 100 UNITS/ML SUBCUT SCH ×2 (06:10→16:35)
[2017-02-04 06:15] LABS: HEMOGLOBIN 11.6 g/dL (12.0-16.0); MEAN CORPUSCULAR HEMOGLOBIN 28.2 pg (28.0-32.0); MEAN CORPUSCULAR HGB CONC 32.2 g/dL (31.0-37.0); MEAN CORPUSCULAR VOLUME 87.7 fL (81.0-99.0); PLATELET 304 x1000/uL (130-400); RED BLOOD CELL COUNT 4.11 mill/uL (4.2-5.4); RED CELL DISTRIBUTION WIDTH 15.3 % (11.6-14.6); WHITE BLOOD COUNT 6.9 x1000/uL (4.5-11.0)
[2017-02-04 07:16] LABS: INR 1.9; PROTHROMBIN TIME 20.1 sec
[2017-02-04 08:00] VITALS: BP 122/70
[2017-02-04] MEDS: ENOXAPARIN 80MG/0.8ML SYR SUBCUT SCH ×2 (08:44→21:00)
[2017-02-04] MEDS: POTASSIUM CHLORIDE 20MEQ TABLET SR PO SCH (08:46)
[2017-02-04] MEDS: DOCUSATE SODIUM 100MG CAPSULE PO SCH ×2 (08:46→16:29)
[2017-02-04] MEDS: METFORMIN HCL 500MG TABLET PO SCH ×2 (08:47→16:29)
[2017-02-04] MEDS: SULFAMETHOXAZOLE/TRIMETHOPRIM 800/160MG TABLET PO SCH ×2 (08:47→21:00)
[2017-02-04] MEDS: FUROSEMIDE 40MG TABLET PO SCH (08:47)
[2017-02-04] MEDS: LEFLUNOMIDE 20MG TABLET PO SCH (08:48)
[2017-02-04] MEDS: GABAPENTIN 300MG CAPSULE PO SCH (08:48)
[2017-02-04] MEDS: FAMOTIDINE 20MG TABLET PO SCH ×2 (08:48→16:29)
[2017-02-04] MEDS: BACLOFEN 10MG TABLET PO SCH ×2 (08:48→21:00)
[2017-02-04] MEDS: LINAGLIPTIN 5MG TABLET PO SCH (08:49)
[2017-02-04] MEDS: NYSTATIN POWDER 15GM TOP SCH ×2 (08:49→16:30)
[2017-02-04] MEDS: IPRATROPIUM/ALBUTEROL 0.5-3(2.5)MG/3ML NEB HHN PRN (11:24)
[2017-02-04] MEDS ORDERED: DILTIAZEM HCL 60MG TABLET PO SCH ×4 (14:45→22:00)
[2017-02-04] MEDS: DIGOXIN 125MCG TABLET PO SCH (17:23)
[2017-02-04] MEDS ORDERED: WARFARIN SODIUM 3MG TABLET PO NR (18:00)
[2017-02-04 19:22] LABS: CLARITY URINE CLEAR (CLEAR); COLOR URINE YELLOW (YELLOW); GLUCOSE URINE NEGATIVE (NEGATIVE); KETONES URINE NEGATIVE (NEGATIVE); LEUKOCYTE ESTERASE URINE NEGATIVE (NEGATIVE); NITRITE URINE NEGATIVE (NEGATIVE); OCCULT BLOOD URINE NEGATIVE (NEGATIVE); PH URINE 5.5 (4.5-8.0); PROTEIN URINE NEGATIVE (NEGATIVE); SPECIFIC GRAVITY URINE 1.006 (1.005-1.030); UROBILINOGEN URINE 0.2 E.U./dL (0.2-1.0)
[2017-02-04 20:00] VITALS: BP 110/65
[2017-02-04] MEDS: ATORVASTATIN CALCIUM 10MG TABLET PO SCH (21:00)
[2017-02-04] MEDS: MUPIROCIN 2% OINT 22GM TOP SCH (22:06)
[2017-02-05] MEDS: HYDROCODONE/ACETAMINOPHEN 10/325MG TABLET PO PRN (01:51)
[2017-02-05] MEDS: IPRATROPIUM/ALBUTEROL 0.5-3(2.5)MG/3ML NEB HHN SCH ×4 (02:07→21:16)
[2017-02-05 05:36] LABS: INR 1.9; PROTHROMBIN TIME 19.6 sec
[2017-02-05 05:50] LABS: ANION GAP 13; CALCIUM 7.9 mg/dL (8.5-10.1); CARBON DIOXIDE 28 mEq/L (21-32); CHLORIDE 102 mEq/L (98-107); INDEX HEMOLYSI 1 (1-3); INDEX ICTERIC 1 (1-4); INDEX LIPEMIC 1 (1-3); NT PRO B-TYPE NATRIURETIC PEP 821 pg/mL (5-125); UREA NITROGEN BLOOD 14 mg/dL (7-21); eGFR > 60 mL/min (>60)
[2017-02-05] MEDS: DILTIAZEM HCL 60MG TABLET PO SCH ×3 (06:00→21:31)
[2017-02-05 06:31] LABS: BASOPHILS % 1.4 % (0.0-2.0); EOSINOPHILS % 3.7 % (0.0-5.0); HEMATOCRIT. 34.5 % (36.0-48.0); HEMOGLOBIN. 11.3 g/dL (12.0-16.0); LYMPHOCYTES % 47.4 % (20.0-50.0); MEAN CORPUSCULAR HEMOGLOBIN 28.9 pg (28.0-32.0); MEAN CORPUSCULAR HGB CONC 32.8 g/dL (31.0-37.0); MEAN CORPUSCULAR VOLUME 88.3 fL (81.0-99.0); MEAN PLATELET VOLUME 9.7 fl (7.4-10.4); MONOCYTES % 12.4 % (2.0-8.0); NEUTROPHILS % 35.1 % (40.0-76.0); PLATELET 300 x1000/uL (130-400); RED BLOOD CELL COUNT 3.91 mill/uL (4.2-5.4); RED CELL DISTRIBUTION WIDTH 15.4 % (11.6-14.6); WHITE BLOOD COUNT 6.7 x1000/uL (4.5-11.0)
[2017-02-05] MEDS: BLOOD SUGAR DIAGNOSTIC STRIP TEST SCH ×2 (06:36→16:13)
[2017-02-05] MEDS: INSULIN LISPRO 100 UNITS/ML SUBCUT SCH ×2 (06:37→16:12)
[2017-02-05 08:00] VITALS: BP 93/55
[2017-02-05] MEDS: ENOXAPARIN 80MG/0.8ML SYR SUBCUT SCH ×2 (09:33→21:33)
[2017-02-05] MEDS: MUPIROCIN 2% OINT 22GM TOP SCH ×2 (09:35→21:34)
[2017-02-05] MEDS: LEFLUNOMIDE 20MG TABLET PO SCH (09:35)
[2017-02-05] MEDS: NYSTATIN POWDER 15GM TOP SCH ×2 (09:35→16:13)
[2017-02-05] MEDS: FAMOTIDINE 20MG TABLET PO SCH ×2 (09:36→16:10)
[2017-02-05] MEDS: BACLOFEN 10MG TABLET PO SCH ×2 (09:36→21:33)
[2017-02-05] MEDS: POTASSIUM CHLORIDE 20MEQ TABLET SR PO SCH (09:36)
[2017-02-05] MEDS: GABAPENTIN 300MG CAPSULE PO SCH (09:36)
[2017-02-05] MEDS: LINAGLIPTIN 5MG TABLET PO SCH (09:36)
[2017-02-05] MEDS: DOCUSATE SODIUM 100MG CAPSULE PO SCH ×2 (09:37→16:10)
[2017-02-05] MEDS: METFORMIN HCL 500MG TABLET PO SCH ×2 (09:37→16:10)
[2017-02-05] MEDS: FUROSEMIDE 40MG TABLET PO SCH (09:37)
[2017-02-05] MEDS: DIGOXIN 125MCG TABLET PO SCH (17:37)
[2017-02-05] MEDS ORDERED: WARFARIN SODIUM 7.5MG TABLET PO NR (18:00)
[2017-02-05 20:00] VITALS: BP 100/48
[2017-02-05] MEDS: ATORVASTATIN CALCIUM 10MG TABLET PO SCH (21:33)
[2017-02-06] MEDS: IPRATROPIUM/ALBUTEROL 0.5-3(2.5)MG/3ML NEB HHN SCH ×4 (01:49→19:42)
[2017-02-06] MEDS: DILTIAZEM HCL 60MG TABLET PO SCH ×3 (06:00→21:49)
[2017-02-06 06:19] LABS: INR 1.9; PROTHROMBIN TIME 19.6 sec
[2017-02-06] MEDS: INSULIN LISPRO 100 UNITS/ML SUBCUT SCH ×2 (06:42→17:00)
[2017-02-06] MEDS: BLOOD SUGAR DIAGNOSTIC STRIP TEST SCH ×2 (06:44→17:31)
[2017-02-06] MEDS: LEFLUNOMIDE 20MG TABLET PO SCH (08:44)
[2017-02-06] MEDS: MUPIROCIN 2% OINT 22GM TOP SCH ×2 (08:45→21:59)
[2017-02-06] MEDS: ENOXAPARIN 80MG/0.8ML SYR SUBCUT SCH ×2 (08:45→21:47)
[2017-02-06] MEDS: GABAPENTIN 300MG CAPSULE PO SCH (08:47)
[2017-02-06] MEDS: POTASSIUM CHLORIDE 20MEQ TABLET SR PO SCH (08:47)
[2017-02-06] MEDS: METFORMIN HCL 500MG TABLET PO SCH ×2 (08:47→17:44)
[2017-02-06] MEDS: FUROSEMIDE 40MG TABLET PO SCH (08:47)
[2017-02-06] MEDS: BACLOFEN 10MG TABLET PO SCH ×2 (08:47→21:46)
[2017-02-06] MEDS: DOCUSATE SODIUM 100MG CAPSULE PO SCH ×2 (08:47→17:45)
[2017-02-06] MEDS: LINAGLIPTIN 5MG TABLET PO SCH (08:47)
[2017-02-06] MEDS: FAMOTIDINE 20MG TABLET PO SCH ×2 (08:47→17:44)
[2017-02-06] MEDS: NYSTATIN POWDER 15GM TOP SCH ×2 (09:56→17:45)
[2017-02-06] MEDS: DIGOXIN 125MCG TABLET PO SCH (17:44)
[2017-02-06] MEDS ORDERED: WARFARIN SODIUM 7.5MG TABLET PO NR (18:00)
[2017-02-06 20:00] VITALS: BP 110/77
[2017-02-06] MEDS: ACETAMINOPHEN 500MG TABLET PO PRN (21:47)
[2017-02-06] MEDS: ATORVASTATIN CALCIUM 10MG TABLET PO SCH (21:47)
[2017-02-07] MEDS: IPRATROPIUM/ALBUTEROL 0.5-3(2.5)MG/3ML NEB HHN SCH ×4 (00:24→19:59)
[2017-02-07] MEDS: DILTIAZEM HCL 60MG TABLET PO SCH ×3 (06:00→22:00)
[2017-02-07] MEDS: ACETAMINOPHEN 500MG TABLET PO PRN ×2 (06:14→22:19)
[2017-02-07] MEDS: BLOOD SUGAR DIAGNOSTIC STRIP TEST SCH ×2 (06:17→17:46)
[2017-02-07] MEDS: INSULIN LISPRO 100 UNITS/ML SUBCUT SCH ×2 (06:25→17:46)
[2017-02-07 06:48] LABS: INR 1.6; PROTHROMBIN TIME 16.7 sec
[2017-02-07 09:00] VITALS: BP 104/68
[2017-02-07] MEDS: GABAPENTIN 300MG CAPSULE PO SCH (09:54)
[2017-02-07] MEDS: DOCUSATE SODIUM 100MG CAPSULE PO SCH ×2 (09:55→17:38)
[2017-02-07] MEDS: METFORMIN HCL 500MG TABLET PO SCH ×2 (09:55→17:39)
[2017-02-07] MEDS: POTASSIUM CHLORIDE 20MEQ TABLET SR PO SCH (09:55)
[2017-02-07] MEDS: BACLOFEN 10MG TABLET PO SCH ×2 (09:55→21:13)
[2017-02-07] MEDS: LINAGLIPTIN 5MG TABLET PO SCH (09:55)
[2017-02-07] MEDS: FAMOTIDINE 20MG TABLET PO SCH ×2 (09:55→17:39)
[2017-02-07] MEDS: FUROSEMIDE 40MG TABLET PO SCH (09:55)
[2017-02-07] MEDS: LEFLUNOMIDE 20MG TABLET PO SCH (09:55)
[2017-02-07] MEDS: ENOXAPARIN 80MG/0.8ML SYR SUBCUT SCH ×2 (09:56→21:14)
[2017-02-07] MEDS: MUPIROCIN 2% OINT 22GM TOP SCH ×2 (09:56→21:14)
[2017-02-07] MEDS: NYSTATIN POWDER 15GM TOP SCH ×2 (09:56→17:48)
[2017-02-07] MEDS: IPRATROPIUM/ALBUTEROL 0.5-3(2.5)MG/3ML NEB HHN PRN (09:59)
[2017-02-07 12:30] VITALS: BP 111/58
[2017-02-07] MEDS: DIGOXIN 125MCG TABLET PO SCH (17:39)
[2017-02-07] MEDS ORDERED: WARFARIN SODIUM 10MG TABLET PO SCH (18:00)
[2017-02-07 20:00] VITALS: BP 98/61
[2017-02-07] MEDS: ATORVASTATIN CALCIUM 10MG TABLET PO SCH (21:13)
[2017-02-08] MEDS: IPRATROPIUM/ALBUTEROL 0.5-3(2.5)MG/3ML NEB HHN SCH ×3 (01:37→16:00)
[2017-02-08] MEDS: DILTIAZEM HCL 60MG TABLET PO SCH ×2 (06:00→14:00)
[2017-02-08] MEDS: BLOOD SUGAR DIAGNOSTIC STRIP TEST SCH ×2 (06:10→16:41)
[2017-02-08] MEDS: INSULIN LISPRO 100 UNITS/ML SUBCUT SCH ×2 (06:11→16:41)
[2017-02-08 06:18] LABS: INR 1.8; PROTHROMBIN TIME 18.4 sec
[2017-02-08] MEDS: HYDROCODONE/ACETAMINOPHEN 10/325MG TABLET PO PRN (07:01)
[2017-02-08 08:04] VITALS: BP 129/68
[2017-02-08] MEDS: FUROSEMIDE 40MG TABLET PO SCH (08:57)
[2017-02-08] MEDS: DOCUSATE SODIUM 100MG CAPSULE PO SCH ×2 (08:57→16:43)
[2017-02-08] MEDS: BACLOFEN 10MG TABLET PO SCH (08:57)
[2017-02-08] MEDS: POTASSIUM CHLORIDE 20MEQ TABLET SR PO SCH (08:57)
[2017-02-08] MEDS: METFORMIN HCL 500MG TABLET PO SCH ×2 (08:57→16:43)
[2017-02-08] MEDS: FAMOTIDINE 20MG TABLET PO SCH ×2 (08:57→16:43)
[2017-02-08] MEDS: LEFLUNOMIDE 20MG TABLET PO SCH (08:57)
[2017-02-08] MEDS: GABAPENTIN 300MG CAPSULE PO SCH (08:57)
[2017-02-08] MEDS: LINAGLIPTIN 5MG TABLET PO SCH (08:57)
[2017-02-08] MEDS: ENOXAPARIN 80MG/0.8ML SYR SUBCUT SCH (08:58)
[2017-02-08] MEDS: NYSTATIN POWDER 15GM TOP SCH ×2 (08:59→16:43)
[2017-02-08] MEDS: MUPIROCIN 2% OINT 22GM TOP SCH (08:59)
[2017-02-08 10:56] VITALS: BP 133/75
[2017-02-08] MEDS: DIGOXIN 125MCG TABLET PO SCH (16:43)
== END 2017-02-08 18:15 | disposition home health service (06) | DRG 191 ==
PROVIDERS: ADMIT Psychiatry & Neurology Neurology; ATTEND Internal Medicine
DX: J44.1 Chronic obstructive pulmonary disease with (acute) exacerbation (principal); L97.809 Non-pressure chronic ulcer of other part of unspecified lower leg with unspecified severity; N39.0 Urinary tract infection, site not specified; E44.1 Mild protein-calorie malnutrition; I50.40 Unspecified combined systolic (congestive) and diastolic (congestive) heart failure; E11.40 Type 2 diabetes mellitus with diabetic neuropathy, unspecified; G89.29 Other chronic pain; I35.1 Nonrheumatic aortic (valve) insufficiency; I48.91 Unspecified atrial fibrillation; M47.896 Other spondylosis, lumbar region; E11.21 Type 2 diabetes mellitus with diabetic nephropathy; E11.51 Type 2 diabetes mellitus with diabetic peripheral angiopathy without gangrene; E11.42 Type 2 diabetes mellitus with diabetic polyneuropathy; I11.0 Hypertensive heart disease with heart failure; R82.71 Bacteriuria; L97.509 Non-pressure chronic ulcer of other part of unspecified foot with unspecified severity; Z82.49 Family history of ischemic heart disease and other diseases of the circulatory system; Z83.3 Family history of diabetes mellitus; Z87.891 Personal history of nicotine dependence; Z79.01 Long term (current) use of anticoagulants; Z68.26 Body mass index [BMI] 26.0-26.9, adult
CPT/HCPCS: 36415; 80048; 80053; 81003; 82962; 83036; 83735; 83880; 84100; 85025; 85027; 85610; 85651; 87086; 93970; 94640; 97110; 97116; 97162; 97167; 97530; 97535; A6261; C1893; J0690; J0696; J1650; J1815; J2250; J2405; J2704; J7050; J7620; Q0162

== ENCOUNTER 2017-07-06 07:47 | Inpatient (IN) | payer MEDICARE, MEDICAID ==
[~2017-07-06] VITALS: Ht 167.6 cm; Wt 79.8 kg
[~2017-07-06 07:47] MED LIST changes: -BENA20TA3 PO; -BUDE6.9H IH; -INSU3INS8 SQ; -LEVA1.2526 NEB; +LEVO500T2 PO; -TIOT18CA3 IH
[2017-07-06] MEDS ORDERED: ONDA4TAB21 PO (08:16)
[2017-07-06] MEDS ORDERED: SIME1LIQ MC (08:16)
[2017-07-06 08:42] LABS: HEMATOCRIT. 34.3 % (36.0-48.0); HEMOGLOBIN. 11.5 g/dL (12.0-16.0); MEAN CORPUSCULAR HEMOGLOBIN 29.3 pg (28.0-32.0); MEAN CORPUSCULAR VOLUME 87.4 fL (81.0-99.0); MEAN PLATELET VOLUME 7.8 fl (7.4-10.4); PLATELET 327 x1000/uL (130-400); RED BLOOD CELL COUNT 3.93 mill/uL (4.2-5.4); RED CELL DISTRIBUTION WIDTH 15.9 % (11.6-14.6)
[2017-07-06 08:53] LABS: INR 2.3; PROTHROMBIN TIME 24.2 sec (9.4-11.6)
[2017-07-06 08:54] LABS: CARBON DIOXIDE 32 mEq/L (21-32); CHLORIDE 99 mEq/L (98-107)
[2017-07-06] MEDS: ALBUTEROL (0.083%) 2.5MG/3ML NEB HHN PRN ×2 (10:28→13:48)
[2017-07-06 10:56] LABS: ATYPICAL LYMPHOCYTES 1; PLATELET ESTIMATE NORMAL
[2017-07-06] MEDS ORDERED: HEPARIN SODIUM 1,000 UNIT/1ML VIAL IV ONE (11:57)
[2017-07-06] MEDS ORDERED: FENTANYL CITRATE/PF 50MCG/ML 2ML VIAL ONE ×2 (13:43→14:56)
[2017-07-06] MEDS ORDERED: MIDAZOLAM HCL 2 MG/2 ML VIAL ONE (13:47)
[2017-07-06] MEDS ORDERED: LIDOCAINE HCL 1% 20ML VIAL (Pyxis) INJ ONE (15:08)
[2017-07-06] MEDS ORDERED: CEFAZOLIN 1000MG PREMIX 100 ML IV ONE (15:14)
[2017-07-06 17:00] VITALS: BP 159/75
[2017-07-06 17:10] VITALS: BP 159/75
[2017-07-06 18:00] VITALS: BP 145/25
[2017-07-06] MEDS ORDERED: IPRATROPIUM/ALBUTEROL 0.5-3(2.5)MG/3ML NEB HHN SCH (18:00)
[2017-07-06] MEDS ORDERED: ONDANSETRON 4MG ODT PO PRN (18:45)
[2017-07-06] MEDS ORDERED: ATROPINE SULFATE 1MG/10ML SYR IV PRN (18:45)
[2017-07-06 20:00] VITALS: BP 157/74
[2017-07-06] MEDS ORDERED: DEXTROSE 50% WATER 50ML SYRINGE IV PRN (20:00)
[2017-07-06] MEDS ORDERED: FUROSEMIDE 40MG/4ML VIAL IVP NR (20:15)
[2017-07-06] MEDS ORDERED: GABAPENTIN 400MG CAPSULE PO SCH (21:00)
[2017-07-06] MEDS ORDERED: GABAPENTIN 300MG CAPSULE PO SCH (21:14)
[2017-07-06] MEDS ORDERED: ONDANSETRON HCL 4MG/2ML VIAL IV PRN (21:15)
[2017-07-06] MEDS: IPRATROPIUM/ALBUTEROL 0.5-3(2.5)MG/3ML NEB HHN SCH (21:18)
[2017-07-06] MEDS: BLOOD SUGAR DIAGNOSTIC STRIP TEST SCH (21:20)
[2017-07-06] MEDS: BACLOFEN 10MG TABLET PO SCH (21:26)
[2017-07-06] MEDS: INSULIN LISPRO 100 UNITS/ML SUBCUT SCH (21:42)
[2017-07-06] MEDS: GABAPENTIN 300MG CAPSULE PO SCH (21:47)
[2017-07-06 22:00] VITALS: BP 138/61
[2017-07-07] VITALS (13 sets, daily range): BP systolic 115–150; BP diastolic 33–82
[2017-07-07] MEDS: CLOTRIMAZOLE 1% CREAM 30GM TOP SCH ×3 (00:15→21:06)
[2017-07-07] MEDS: IPRATROPIUM/ALBUTEROL 0.5-3(2.5)MG/3ML NEB HHN SCH ×6 (00:42→20:00)
[2017-07-07] MEDS: BACLOFEN 10MG TABLET PO SCH ×3 (03:58→18:45)
[2017-07-07] MEDS: HYDROCODONE/ACETAMINOPHEN 10/325MG TABLET PO PRN ×2 (05:33→21:09)
[2017-07-07] MEDS: BLOOD SUGAR DIAGNOSTIC STRIP TEST SCH ×4 (05:53→21:10)
[2017-07-07 07:24] LABS: PROTHROMBIN TIME 20.7 sec (9.4-11.6)
[2017-07-07 07:43] LABS: CARBON DIOXIDE 34 mEq/L (21-32); CHLORIDE 96 mEq/L (98-107)
[2017-07-07 07:54] LABS: HEMATOCRIT. 36.8 % (36.0-48.0); HEMOGLOBIN. 12.1 g/dL (12.0-16.0); MEAN CORPUSCULAR HEMOGLOBIN 29.1 pg (28.0-32.0); MEAN CORPUSCULAR VOLUME 88.2 fL (81.0-99.0); RED BLOOD CELL COUNT 4.17 mill/uL (4.2-5.4); RED CELL DISTRIBUTION WIDTH 16.3 % (11.6-14.6)
[2017-07-07] MEDS ORDERED: LEVOFLOXACIN 500MG TABLET PO SCH (09:00)
[2017-07-07] MEDS: POTASSIUM CHLORIDE 20MEQ TABLET SR PO SCH (09:07)
[2017-07-07] MEDS: LEFLUNOMIDE 20MG TABLET PO SCH (09:08)
[2017-07-07] MEDS: OMEPRAZOLE 20MG CAPSULE EXTENDED RELEASE PO SCH (09:08)
[2017-07-07] MEDS: DIGOXIN 250MCG TABLET PO SCH (09:08)
[2017-07-07] MEDS: INSULIN LISPRO 100 UNITS/ML SUBCUT SCH ×4 (09:14→21:50)
[2017-07-07 14:21] LABS: PLATELET 334 x1000/uL (130-400); PLATELET ESTIMATE NORMAL
[2017-07-07] MEDS: WARFARIN SODIUM 4MG TABLET PO SCH (17:52)
[2017-07-07] MEDS: GABAPENTIN 300MG CAPSULE PO SCH (21:07)
[2017-07-08] VITALS (19 sets, daily range): BP systolic 92–180; BP diastolic 45–88
[2017-07-08] MEDS: IPRATROPIUM/ALBUTEROL 0.5-3(2.5)MG/3ML NEB HHN SCH ×6 (01:15→21:07)
[2017-07-08] MEDS: BACLOFEN 10MG TABLET PO SCH ×3 (02:55→17:47)
[2017-07-08] MEDS: HYDROCODONE/ACETAMINOPHEN 10/325MG TABLET PO PRN ×3 (05:51→17:48)
[2017-07-08] MEDS: BLOOD SUGAR DIAGNOSTIC STRIP TEST SCH ×4 (05:52→21:59)
[2017-07-08] MEDS: POTASSIUM CHLORIDE 20MEQ TABLET SR PO SCH (07:53)
[2017-07-08] MEDS: DIGOXIN 250MCG TABLET PO SCH (07:53)
[2017-07-08] MEDS: OMEPRAZOLE 20MG CAPSULE EXTENDED RELEASE PO SCH (07:54)
[2017-07-08] MEDS: INSULIN LISPRO 100 UNITS/ML SUBCUT SCH ×4 (07:55→21:59)
[2017-07-08] MEDS: LEFLUNOMIDE 20MG TABLET PO SCH (07:56)
[2017-07-08] MEDS: CLOTRIMAZOLE 1% CREAM 30GM TOP SCH ×2 (08:01→22:20)
[2017-07-08] MEDS: WARFARIN SODIUM 4MG TABLET PO SCH (17:47)
[2017-07-08 21:20] LABS: BG BASE EXCESS 2.8 mmol/L (-2.0-2.0); BG CARBOXYHEMOGLOBIN 0.8 % (0.5-1.5); BG FRACTION INSPIRED OXYGEN 28; BG METHEMOGLOBIN 0.1 % (0.0-1.5); BG OXYHEMOGLOBIN 95.1 % (94.0-97.0); BG PH 7.447 (7.350-7.450); BG PO2 81.7 mmHg (75.0-100.0); BG SAMPLE SITE LEFT RADIAL; BG TOTAL HEMOGLOBIN 12.8 g/dL (12.0-18.0); BG VENT MODE NASAL CANNULA
[2017-07-08] MEDS ORDERED: LORAZEPAM 1MG TABLET PO SCH (21:35)
[2017-07-08] MEDS: GABAPENTIN 300MG CAPSULE PO SCH (22:00)
[2017-07-08] MEDS: PANTOT AC/MIN OIL/PET HY-PHL OINT 52.5GM (AQUAPHOR) TOP SCH (22:20)
[2017-07-09] VITALS (12 sets, daily range): BP systolic 103–162; BP diastolic 49–79
[2017-07-09] MEDS: IPRATROPIUM/ALBUTEROL 0.5-3(2.5)MG/3ML NEB HHN SCH ×6 (00:38→20:12)
[2017-07-09] MEDS: BACLOFEN 10MG TABLET PO SCH ×3 (03:53→17:17)
[2017-07-09] MEDS: ACETAMINOPHEN 325MG TABLET PO PRN (03:58)
[2017-07-09] MEDS: BLOOD SUGAR DIAGNOSTIC STRIP TEST SCH ×4 (06:07→20:13)
[2017-07-09 06:52] LABS: PROTHROMBIN TIME 21.3 sec (9.4-11.6)
[2017-07-09] MEDS ORDERED: FUROSEMIDE 40MG/4ML VIAL IVP SCH (07:30)
[2017-07-09] MEDS: FUROSEMIDE 40MG TABLET PO SCH ×2 (08:01→17:17)
[2017-07-09] MEDS: POTASSIUM CHLORIDE 20MEQ TABLET SR PO SCH (08:01)
[2017-07-09] MEDS: FAMOTIDINE 20MG TABLET PO SCH ×2 (08:01→17:17)
[2017-07-09] MEDS: DIGOXIN 250MCG TABLET PO SCH (08:02)
[2017-07-09] MEDS: LEFLUNOMIDE 20MG TABLET PO SCH (08:02)
[2017-07-09] MEDS: PANTOT AC/MIN OIL/PET HY-PHL OINT 52.5GM (AQUAPHOR) TOP SCH ×2 (08:02→21:37)
[2017-07-09] MEDS: CLOTRIMAZOLE 1% CREAM 30GM TOP SCH ×2 (08:02→21:38)
[2017-07-09] MEDS: INSULIN LISPRO 100 UNITS/ML SUBCUT SCH ×4 (08:04→21:39)
[2017-07-09] MEDS: WARFARIN SODIUM 4MG TABLET PO SCH (17:17)
[2017-07-09] MEDS: LORAZEPAM 1MG TABLET PO PRN (19:32)
[2017-07-09] MEDS: GABAPENTIN 300MG CAPSULE PO SCH (20:03)
[2017-07-09] MEDS: HYDROCODONE/ACETAMINOPHEN 10/325MG TABLET PO PRN (20:05)
[2017-07-10] VITALS (13 sets, daily range): BP systolic 98–148; BP diastolic 54–92
[2017-07-10] MEDS: IPRATROPIUM/ALBUTEROL 0.5-3(2.5)MG/3ML NEB HHN SCH ×7 (00:12→21:18)
[2017-07-10] MEDS: BACLOFEN 10MG TABLET PO SCH ×4 (03:35→18:55)
[2017-07-10] MEDS: FUROSEMIDE 40MG TABLET PO SCH ×2 (06:09→17:06)
[2017-07-10] MEDS: BLOOD SUGAR DIAGNOSTIC STRIP TEST SCH ×4 (06:10→20:50)
[2017-07-10 06:40] LABS: PROTHROMBIN TIME 20.3 sec (9.4-11.6)
[2017-07-10] MEDS: INSULIN LISPRO 100 UNITS/ML SUBCUT SCH ×4 (07:41→20:53)
[2017-07-10] MEDS: POTASSIUM CHLORIDE 20MEQ TABLET SR PO SCH (07:49)
[2017-07-10] MEDS: FAMOTIDINE 20MG TABLET PO SCH ×2 (07:49→17:05)
[2017-07-10] MEDS: LEFLUNOMIDE 20MG TABLET PO SCH (07:49)
[2017-07-10] MEDS: DIGOXIN 250MCG TABLET PO SCH (07:49)
[2017-07-10] MEDS: PANTOT AC/MIN OIL/PET HY-PHL OINT 52.5GM (AQUAPHOR) TOP SCH ×2 (09:46→22:40)
[2017-07-10] MEDS: CLOTRIMAZOLE 1% CREAM 30GM TOP SCH ×2 (09:47→22:41)
[2017-07-10] MEDS ORDERED: GUAIFENESIN/CODEINE 100-10MG/5ML UDC PO PRN (11:30)
[2017-07-10] MEDS: BENZONATATE 100MG CAPSULE PO SCH ×2 (12:10→20:54)
[2017-07-10] MEDS: WARFARIN SODIUM 4MG TABLET PO SCH (17:06)
[2017-07-10] MEDS ORDERED: MAGNESIUM HYDROXIDE 400MG/5ML 30ML UDC PO PRN (18:45)
[2017-07-10] MEDS: GABAPENTIN 300MG CAPSULE PO SCH (20:53)
[2017-07-10] MEDS: HYDROCODONE/ACETAMINOPHEN 10/325MG TABLET PO PRN (20:56)
[2017-07-11] VITALS (12 sets, daily range): BP systolic 101–158; BP diastolic 46–89
[2017-07-11] MEDS: IPRATROPIUM/ALBUTEROL 0.5-3(2.5)MG/3ML NEB HHN SCH ×7 (01:16→23:57)
[2017-07-11] MEDS: BACLOFEN 10MG TABLET PO SCH ×3 (04:06→18:47)
[2017-07-11] MEDS: BENZONATATE 100MG CAPSULE PO SCH ×3 (05:35→21:43)
[2017-07-11] MEDS: BLOOD SUGAR DIAGNOSTIC STRIP TEST SCH ×4 (05:36→21:56)
[2017-07-11] MEDS: FUROSEMIDE 40MG TABLET PO SCH ×2 (05:36→16:58)
[2017-07-11] MEDS: HYDROCODONE/ACETAMINOPHEN 10/325MG TABLET PO PRN (05:58)
[2017-07-11 06:24] LABS: HEMATOCRIT. 35.1 % (36.0-48.0); HEMOGLOBIN. 11.5 g/dL (12.0-16.0); MEAN CORPUSCULAR HEMOGLOBIN 28.6 pg (28.0-32.0); MEAN CORPUSCULAR VOLUME 87.3 fL (81.0-99.0); MEAN PLATELET VOLUME 8.8 fl (7.4-10.4); PLATELET 476 x1000/uL (130-400); RED BLOOD CELL COUNT 4.01 mill/uL (4.2-5.4)
[2017-07-11 06:26] LABS: PROTHROMBIN TIME 21.4 sec (9.4-11.6)
[2017-07-11] MEDS: INSULIN LISPRO 100 UNITS/ML SUBCUT SCH ×4 (07:25→21:55)
[2017-07-11 08:00] LABS: CARBON DIOXIDE 31 mEq/L (21-32); PHOSPHORUS 2.7 mg/dL (2.5-4.9)
[2017-07-11 08:41] LABS: CHLORIDE 96 mEq/L (98-107)
[2017-07-11] MEDS ORDERED: DOCUSATE SODIUM SUGAR FREE 100MG/10ML UDC NG SCH (09:00)
[2017-07-11] MEDS ORDERED: DOCUSATE SODIUM 100MG CAPSULE PO SCH (09:15)
[2017-07-11] MEDS: DIGOXIN 250MCG TABLET PO SCH (09:19)
[2017-07-11] MEDS: LEFLUNOMIDE 20MG TABLET PO SCH (09:19)
[2017-07-11] MEDS: FAMOTIDINE 20MG TABLET PO SCH ×2 (09:19→16:58)
[2017-07-11] MEDS: POTASSIUM CHLORIDE 20MEQ TABLET SR PO SCH (09:19)
[2017-07-11] MEDS: LORAZEPAM 1MG TABLET PO PRN (09:22)
[2017-07-11] MEDS: PANTOT AC/MIN OIL/PET HY-PHL OINT 52.5GM (AQUAPHOR) TOP SCH ×2 (14:18→21:56)
[2017-07-11] MEDS: CLOTRIMAZOLE 1% CREAM 30GM TOP SCH ×2 (14:18→21:56)
[2017-07-11 14:23] LABS: PLATELET ESTIMATE INCREASED
[2017-07-11] MEDS: WARFARIN SODIUM 4MG TABLET PO SCH (16:58)
[2017-07-11] MEDS: GABAPENTIN 300MG CAPSULE PO SCH (21:43)
[2017-07-11] MEDS ORDERED: MAGNESIUM 4 G PREMIX 100 ML IV NR (22:00)
[2017-07-12] VITALS (14 sets, daily range): BP systolic 102–142; BP diastolic 55–77
[2017-07-12] MEDS: BACLOFEN 10MG TABLET PO SCH ×3 (02:03→17:08)
[2017-07-12] MEDS: IPRATROPIUM/ALBUTEROL 0.5-3(2.5)MG/3ML NEB HHN SCH ×5 (04:28→21:24)
[2017-07-12 06:42] LABS: PROTHROMBIN TIME 21.1 sec (9.4-11.6)
[2017-07-12 06:57] LABS: HEMATOCRIT. 31.1 % (36.0-48.0); HEMOGLOBIN. 10.4 g/dL (12.0-16.0); MEAN CORPUSCULAR HEMOGLOBIN 28.9 pg (28.0-32.0); MEAN CORPUSCULAR VOLUME 86.6 fL (81.0-99.0); MEAN PLATELET VOLUME 8.9 fl (7.4-10.4); PLATELET 530 x1000/uL (130-400); RED BLOOD CELL COUNT 3.59 mill/uL (4.2-5.4)
[2017-07-12] MEDS: BLOOD SUGAR DIAGNOSTIC STRIP TEST SCH ×4 (07:17→21:05)
[2017-07-12] MEDS: FUROSEMIDE 40MG TABLET PO SCH ×2 (07:17→17:07)
[2017-07-12] MEDS: BENZONATATE 100MG CAPSULE PO SCH ×3 (07:18→21:06)
[2017-07-12] MEDS: INSULIN LISPRO 100 UNITS/ML SUBCUT SCH ×4 (07:39→21:07)
[2017-07-12] MEDS: POTASSIUM CHLORIDE 20MEQ TABLET SR PO SCH (07:40)
[2017-07-12] MEDS: LEFLUNOMIDE 20MG TABLET PO SCH (07:40)
[2017-07-12] MEDS: DOCUSATE SODIUM 100MG CAPSULE PO SCH (07:41)
[2017-07-12] MEDS: DIGOXIN 250MCG TABLET PO SCH (07:41)
[2017-07-12] MEDS: FAMOTIDINE 20MG TABLET PO SCH ×2 (07:41→17:08)
[2017-07-12 07:55] LABS: CARBON DIOXIDE 35 mEq/L (21-32); CHLORIDE 96 mEq/L (98-107); PHOSPHORUS 2.8 mg/dL (2.5-4.9)
[2017-07-12] MEDS ORDERED: DOCUSATE SODIUM 100MG CAPSULE PO SCH (09:00)
[2017-07-12 14:20] LABS: PLATELET ESTIMATE INCREASED
[2017-07-12] MEDS: WARFARIN SODIUM 4MG TABLET PO SCH (17:08)
[2017-07-12] MEDS: CLOTRIMAZOLE 1% CREAM 30GM TOP SCH ×2 (17:10→21:04)
[2017-07-12] MEDS: PANTOT AC/MIN OIL/PET HY-PHL OINT 52.5GM (AQUAPHOR) TOP SCH ×2 (17:10→21:04)
[2017-07-12] MEDS: GABAPENTIN 300MG CAPSULE PO SCH (21:04)
[2017-07-12] MEDS: ACETAMINOPHEN 325MG TABLET PO PRN (21:04)
[2017-07-13] VITALS (12 sets, daily range): BP systolic 95–152; BP diastolic 50–85
[2017-07-13] MEDS: IPRATROPIUM/ALBUTEROL 0.5-3(2.5)MG/3ML NEB HHN SCH ×7 (00:43→23:27)
[2017-07-13] MEDS: BACLOFEN 10MG TABLET PO SCH ×3 (03:00→18:57)
[2017-07-13] MEDS: ACETAMINOPHEN 325MG TABLET PO PRN ×3 (03:00→21:10)
[2017-07-13] MEDS: BENZONATATE 100MG CAPSULE PO SCH ×3 (06:06→21:01)
[2017-07-13] MEDS: FUROSEMIDE 40MG TABLET PO SCH ×2 (06:06→17:19)
[2017-07-13] MEDS: BLOOD SUGAR DIAGNOSTIC STRIP TEST SCH ×4 (06:07→20:51)
[2017-07-13] MEDS: INSULIN LISPRO 100 UNITS/ML SUBCUT SCH ×4 (07:59→21:03)
[2017-07-13] MEDS: DOCUSATE SODIUM 100MG CAPSULE PO SCH (08:01)
[2017-07-13] MEDS: POTASSIUM CHLORIDE 20MEQ TABLET SR PO SCH (08:02)
[2017-07-13] MEDS: FAMOTIDINE 20MG TABLET PO SCH ×2 (08:02→17:19)
[2017-07-13] MEDS: DIGOXIN 250MCG TABLET PO SCH (08:02)
[2017-07-13] MEDS: LEFLUNOMIDE 20MG TABLET PO SCH (08:07)
[2017-07-13] MEDS: PANTOT AC/MIN OIL/PET HY-PHL OINT 52.5GM (AQUAPHOR) TOP SCH ×2 (08:08→20:57)
[2017-07-13] MEDS: CLOTRIMAZOLE 1% CREAM 30GM TOP SCH ×2 (08:08→21:02)
[2017-07-13] MEDS: WARFARIN SODIUM 4MG TABLET PO SCH (17:20)
[2017-07-13] MEDS ORDERED: IPRATROPIUM/ALBUTEROL 0.5-3(2.5)MG/3ML NEB HHN PRN (20:45)
[2017-07-13] MEDS: GABAPENTIN 300MG CAPSULE PO SCH (20:58)
[2017-07-13] MEDS: PREDNISONE 20MG TABLET PO SCH (22:33)
[2017-07-14] VITALS (11 sets, daily range): BP systolic 107–163; BP diastolic 48–95
[2017-07-14] MEDS: IPRATROPIUM/ALBUTEROL 0.5-3(2.5)MG/3ML NEB HHN SCH ×7 (01:30→20:23)
[2017-07-14] MEDS: ACETAMINOPHEN 325MG TABLET PO PRN ×2 (02:11→10:43)
[2017-07-14] MEDS: BACLOFEN 10MG TABLET PO SCH ×3 (02:11→18:32)
[2017-07-14] MEDS: FUROSEMIDE 40MG TABLET PO SCH ×2 (06:08→18:32)
[2017-07-14] MEDS: BENZONATATE 100MG CAPSULE PO SCH ×2 (06:08→13:16)
[2017-07-14] MEDS: BLOOD SUGAR DIAGNOSTIC STRIP TEST SCH ×4 (06:11→21:40)
[2017-07-14 07:28] LABS: BASOPHILS % 0.9 % (0.0-2.0); EOSINOPHILS % 3.7 % (0.0-5.0); HEMATOCRIT. 35.1 % (36.0-48.0); HEMOGLOBIN. 11.3 g/dL (12.0-16.0); LYMPHOCYTES % 19.3 % (20.0-50.0); MEAN CORPUSCULAR HEMOGLOBIN 27.8 pg (28.0-32.0); MEAN CORPUSCULAR VOLUME 86.2 fL (81.0-99.0); MEAN PLATELET VOLUME 8.8 fl (7.4-10.4); MONOCYTES % 6.7 % (2.0-8.0); NEUTROPHILS % 69.4 % (40.0-76.0); PLATELET 514 x1000/uL (130-400); RED BLOOD CELL COUNT 4.08 mill/uL (4.2-5.4); RED CELL DISTRIBUTION WIDTH 16.1 % (11.6-14.6)
[2017-07-14 08:12] LABS: CARBON DIOXIDE 33 mEq/L (21-32); CHLORIDE 95 mEq/L (98-107); PHOSPHORUS 4.5 mg/dL (2.5-4.9)
[2017-07-14] MEDS: INSULIN LISPRO 100 UNITS/ML SUBCUT SCH ×4 (08:22→21:29)
[2017-07-14] MEDS: FAMOTIDINE 20MG TABLET PO SCH ×2 (08:23→17:30)
[2017-07-14] MEDS: POTASSIUM CHLORIDE 20MEQ TABLET SR PO SCH (08:23)
[2017-07-14] MEDS: LEFLUNOMIDE 20MG TABLET PO SCH (08:23)
[2017-07-14] MEDS: DIGOXIN 250MCG TABLET PO SCH (08:23)
[2017-07-14] MEDS: PANTOT AC/MIN OIL/PET HY-PHL OINT 52.5GM (AQUAPHOR) TOP SCH (08:24)
[2017-07-14] MEDS: DOCUSATE SODIUM 100MG CAPSULE PO SCH (08:24)
[2017-07-14] MEDS: PREDNISONE 20MG TABLET PO SCH (08:24)
[2017-07-14] MEDS: CLOTRIMAZOLE 1% CREAM 30GM TOP SCH (08:24)
[2017-07-14] MEDS ORDERED: HYDROCODONE/ACETAMINOPHEN 5/325MG TABLET PO PRN (14:30)
[2017-07-14] MEDS ORDERED: METFORMIN HCL PO SCH (17:00)
[2017-07-14] MEDS ORDERED: [UNRECOGNIZED DRUG - OTHER] PO SCH (17:00)
[2017-07-14] MEDS ORDERED: SITAGLIPTIN PHOS PO SCH (17:00)
[2017-07-14] MEDS ORDERED: CELECOXIB 100MG CAPSULE PO SCH (17:20)
[2017-07-14] MEDS ORDERED: METFORMIN HCL 500MG TABLET PO SCH (17:20)
[2017-07-14] MEDS: WARFARIN SODIUM 4MG TABLET PO SCH (18:32)
[2017-07-14] MEDS: GABAPENTIN 300MG CAPSULE PO SCH (21:29)
[2017-07-15] MEDS ORDERED: LINAGLIPTIN 5MG TABLET PO SCH (09:00)
== END 2017-07-14 21:39 | DRG 273 ==
LOC: CCL 07:47 → 3WST 07:48
PROVIDERS: ADMIT Internal Medicine Clinical Cardiac Electrophysiology; ATTEND Internal Medicine Clinical Cardiac Electrophysiology
PROC: 02583ZZ Destruction of Conduction Mechanism, Percutaneous Approach (ICD-10-PCS; principal; 2017-07-08)
DX: I13.0 Hypertensive heart and chronic kidney disease with heart failure and stage 1 through stage 4 chronic kidney disease, or unspecified chronic kidney disease (principal); I50.43 Acute on chronic combined systolic (congestive) and diastolic (congestive) heart failure; I44.2 Atrioventricular block, complete; E11.22 Type 2 diabetes mellitus with diabetic chronic kidney disease; E11.40 Type 2 diabetes mellitus with diabetic neuropathy, unspecified; J44.1 Chronic obstructive pulmonary disease with (acute) exacerbation; B02.29 Other postherpetic nervous system involvement; I48.2 Chronic atrial fibrillation; N18.9 Chronic kidney disease, unspecified; F41.9 Anxiety disorder, unspecified; G89.4 Chronic pain syndrome; J98.01 Acute bronchospasm; Z86.14 Personal history of Methicillin resistant Staphylococcus aureus infection; M19.90 Unspecified osteoarthritis, unspecified site; M48.8X6 Other specified spondylopathies, lumbar region; Z95.0 Presence of cardiac pacemaker
CPT/HCPCS: 36415; 36600; 71010; 80048; 82375; 82805; 82962; 83735; 84100; 84443; 85025; 85610; 85651; 93005; 93650; 94640; 94664; 97110; 97116; 97162; 97166; 97530; A6261; C1731; C1732; C1893; J0690; J1644; J1815; J1940; J2250; J3010; J3475; J3490; J7030; J7050; J7512; J7611; J7620; A4315

== ENCOUNTER 2018-11-22 13:36 | Inpatient (IN) | payer MEDICARE, MEDICAID ==
[~2018-11-22] VITALS: Ht 167.6 cm; Wt 70.8 kg
[~2018-11-22 13:36] MED LIST changes: +CELE100C PO; +INSULIN ASPART; -LEVO500T2 PO; +ONDA4TAB21 PO; +PANT20TA3 MT; -POTA20TA82 PO; +SIME1LIQ MC; -WARF4TAB40 PO; +duloxetine
[2018-11-22] MEDS ORDERED: IPRATROPIUM BROMIDE (0.02%) 0.5MG/2.5ML NEB HHN STA (15:07)
[2018-11-22] MEDS ORDERED: ALBUTEROL (0.083%) 2.5MG/3ML NEB HHN STA ×2 (15:07→16:13)
[2018-11-22] MEDS ORDERED: METHYLPREDNISOLONE SOD SUCC 125 MG/2 ML VIAL IV STA (15:07)
[2018-11-22] MEDS ORDERED: LEVOFLOXACIN 750MG PREMIX 150 ML IV ONE (15:15)
[2018-11-22] MEDS ORDERED: ALBUTEROL (0.5%) 2.5MG/0.5ML NEB HHN ONE (15:22)
[2018-11-22] MEDS ORDERED: ALBUTEROL (0.083%) 2.5MG/3ML NEB ONE (15:23)
[2018-11-22 15:26] LABS: HEMATOCRIT. 41.2 % (36.0-48.0); MEAN CORPUSCULAR HEMOGLOBIN 28.4 pg (28.0-32.0); MEAN CORPUSCULAR VOLUME 89.8 fL (81.0-99.0); MEAN PLATELET VOLUME 8.7 fl (7.4-10.4); PLATELET 597 x1000/uL (130-400); RED BLOOD CELL COUNT 4.59 mill/uL (4.2-5.4)
[2018-11-22 15:30] LABS: INR 1.1; PROTHROMBIN TIME 11.4 sec (9.1-11.1)
[2018-11-22 15:32] LABS: CHLORIDE 96 mEq/L (98-107)
[2018-11-22 15:52] LABS: PLATELET ESTIMATE INCREASED
[2018-11-22 17:54] LABS: CLARITY URINE CLEAR (CLEAR); COLOR URINE YELLOW (YELLOW); KETONES URINE NEGATIVE (NEGATIVE); LEUKOCYTE ESTERASE URINE NEGATIVE (NEGATIVE); NITRITE URINE NEGATIVE (NEGATIVE); OCCULT BLOOD URINE NEGATIVE (NEGATIVE); PH URINE 6.5 (4.5-8.0); PROTEIN URINE NEGATIVE (NEGATIVE); SPECIFIC GRAVITY URINE 1.012 (1.005-1.030); UROBILINOGEN URINE 0.2 E.U./dL (0.2-1.0)
[2018-11-22 18:00] VITALS: BP_SYST 153; BP_SYST 154; BP_DIAS 61; BP_DIAS 72
[2018-11-22] MEDS ORDERED: DULO30CA51 PO (18:37)
[2018-11-22] MEDS ORDERED: APIX5TAB PO (18:38)
[2018-11-22] MEDS ORDERED: TIOT18CA3 IH (18:52)
[2018-11-22] MEDS ORDERED: FLUT1BLS3 IH (18:52)
[2018-11-22] MEDS ORDERED: FLUT1DIS2 INH (18:52)
[2018-11-22] MEDS ORDERED: LEVA0.6320 NEB (18:52)
[2018-11-22] MEDS ORDERED: SIME125C MT (18:52)
[2018-11-22] MEDS ORDERED: LORA-249 PO (18:52)
[2018-11-22] MEDS ORDERED: POTA20TA82 PO (18:52)
[2018-11-22] MEDS ORDERED: ACYC15OI7 TP (18:52)
[2018-11-22] MEDS ORDERED: ACYC5CRE3 TP (18:52)
[2018-11-22] MEDS ORDERED: FLOV44 IH (18:52)
[2018-11-22] MEDS ORDERED: GLUC1VIA6 PO (18:54)
[2018-11-22 20:00] VITALS: BP 137/59
[2018-11-22] MEDS: IPRATROPIUM/ALBUTEROL 0.5-3(2.5)MG/3ML NEB HHN SCH (21:22)
[2018-11-22] MEDS ORDERED: ONDANSETRON HCL 4MG/2ML INJ IV PRN (23:30)
[2018-11-22] MEDS ORDERED: HYDROCODONE/ACETAMINOPHEN 10/325MG TABLET PO PRN (23:50)
[2018-11-22] MEDS ORDERED: ENOXAPARIN 80MG/0.8ML SYR SUBCUT NR (23:56)
[2018-11-23] VITALS (12 sets, daily range): BP systolic 111–165; BP diastolic 51–85
[2018-11-23] MEDS: IPRATROPIUM/ALBUTEROL 0.5-3(2.5)MG/3ML NEB HHN SCH ×6 (00:15→23:58)
[2018-11-23] MEDS ORDERED: DEXTROSE 50% WATER 50ML SYRINGE IV PRN ×3 (01:15→18:45)
[2018-11-23] MEDS: BLOOD SUGAR DIAGNOSTIC STRIP TEST SCH ×5 (01:21→21:30)
[2018-11-23] MEDS: PIPERACILLIN/TAZ 3.375G PREMIX 50 ML IV SCH ×4 (01:48→18:48)
[2018-11-23] MEDS: INSULIN LISPRO 100 UNITS/ML SUBCUT SCH ×7 (01:56→21:47)
[2018-11-23] MEDS: OMEPRAZOLE 20MG CAPSULE EXTENDED RELEASE PO SCH (06:26)
[2018-11-23] MEDS: BACLOFEN 10MG TABLET PO SCH ×3 (06:26→21:06)
[2018-11-23 07:15] LABS: HEMATOCRIT. 40.3 % (36.0-48.0); HEMOGLOBIN. 12.8 g/dL (12.0-16.0); MEAN CORPUSCULAR HEMOGLOBIN 28.5 pg (28.0-32.0); MEAN CORPUSCULAR VOLUME 89.8 fL (81.0-99.0); MEAN PLATELET VOLUME 8.9 fl (7.4-10.4); PLATELET 518 x1000/uL (130-400); RED BLOOD CELL COUNT 4.49 mill/uL (4.2-5.4); RED CELL DISTRIBUTION WIDTH 15.8 % (11.6-14.6)
[2018-11-23 07:26] LABS: CHLORIDE 96 mEq/L (98-107)
[2018-11-23 07:43] LABS: PHOSPHORUS 3.7 mg/dL (2.5-4.9)
[2018-11-23] MEDS ORDERED: INSULIN LISPRO 100 UNITS/ML SUBCUT SCH ×4 (08:00→21:00)
[2018-11-23] MEDS: DULOXETINE HCL 30MG DR CAPSULE PO SCH ×2 (08:38→21:07)
[2018-11-23] MEDS: DILTIAZEM HCL 120MG CAPSULE CD 24HR PO SCH (08:39)
[2018-11-23] MEDS: CELECOXIB 100MG CAPSULE PO SCH ×2 (08:39→18:38)
[2018-11-23 09:30] LABS: BG BASE EXCESS 10.6 mmol/L (-2.0-2.0); BG CARBOXYHEMOGLOBIN 1.1 % (0.5-1.5); BG DEOXYHEMOGLOBIN 0.4 % (0.0-5.0); BG FRACTION INSPIRED OXYGEN 100; BG HCO3 ACT 36.7 mmol/L (22.0-26.0); BG METHEMOGLOBIN 0.1 % (0.0-1.5); BG OXYGEN SATURATION 99.6 % (92.0-98.5); BG OXYHEMOGLOBIN 98.4 % (94.0-97.0); BG PCO2 55.6 mmHg (35.0-45.0); BG PH 7.438 (7.350-7.450); BG PO2 264.5 mmHg (75.0-100.0); BG SAMPLE SITE RIGHT BRACHIAL; BG VENT MODE VAPOTHERM
[2018-11-23] MEDS: ENOXAPARIN 80MG/0.8ML SYR SUBCUT SCH ×2 (09:43→21:20)
[2018-11-23] MEDS ORDERED: LORAZEPAM 2MG/ML CPJ IV NR (12:30)
[2018-11-23 13:10] LABS: PLATELET ESTIMATE INCREASED
[2018-11-23 13:54] LABS: BG BASE EXCESS 12.3 mmol/L (-2.0-2.0); BG DEOXYHEMOGLOBIN 4.2 % (0.0-5.0); BG HCO3 ACT 38.7 mmol/L (22.0-26.0); BG METHEMOGLOBIN 0.3 % (0.0-1.5); BG OXYGEN SATURATION 95.7 % (92.0-98.5); BG OXYHEMOGLOBIN 94.5 % (94.0-97.0); BG PH 7.442 (7.350-7.450); BG PO2 82.3 mmHg (75.0-100.0); BG SAMPLE SITE RIGHT BRACHIAL; BG TOTAL HEMOGLOBIN 12.5 g/dL (12.0-18.0)
[2018-11-23] MEDS: BUSPIRONE HCL 5MG TABLET PO SCH ×2 (14:47→21:07)
[2018-11-23 17:05] LABS: BG VENT MODE NASAL CANN
[2018-11-23 17:06] LABS: BG FLOW(L/min) 3 L/min; BG FRACTION INSPIRED OXYGEN 32
[2018-11-23] MEDS: DIGOXIN 125MCG TABLET PO SCH (18:38)
[2018-11-23] MEDS ORDERED: MAGNESIUM 4 G PREMIX 100 ML IV SCH ×2 (20:00→21:00)
[2018-11-23] MEDS ORDERED: BLOOD SUGAR DIAGNOSTIC STRIP TEST SCH (21:00)
[2018-11-23] MEDS: GABAPENTIN 300MG CAPSULE PO SCH (21:06)
[2018-11-24] VITALS (11 sets, daily range): BP systolic 116–144; BP diastolic 58–74
[2018-11-24] MEDS: IPRATROPIUM/ALBUTEROL 0.5-3(2.5)MG/3ML NEB HHN SCH ×8 (04:03→23:50)
[2018-11-24] MEDS: PIPERACILLIN/TAZ 3.375G PREMIX 50 ML IV SCH ×5 (06:00→23:36)
[2018-11-24] MEDS: OMEPRAZOLE 20MG CAPSULE EXTENDED RELEASE PO SCH (06:41)
[2018-11-24] MEDS: BACLOFEN 10MG TABLET PO SCH ×3 (06:41→20:48)
[2018-11-24] MEDS: INSULIN LISPRO 100 UNITS/ML SUBCUT SCH ×7 (07:30→20:53)
[2018-11-24] MEDS ORDERED: MAGNESIUM 4 G PREMIX 100 ML IV NR (08:00)
[2018-11-24] MEDS: BLOOD SUGAR DIAGNOSTIC STRIP TEST SCH ×4 (08:26→20:47)
[2018-11-24] MEDS ORDERED: LIDOCAINE HCL 1% 20ML VIAL (Pyxis) INJ ONE (09:34)
[2018-11-24] MEDS: BUSPIRONE HCL 5MG TABLET PO SCH ×2 (10:29→20:47)
[2018-11-24] MEDS: CELECOXIB 100MG CAPSULE PO SCH ×2 (10:30→17:31)
[2018-11-24] MEDS: DILTIAZEM HCL 120MG CAPSULE CD 24HR PO SCH (10:30)
[2018-11-24] MEDS: DULOXETINE HCL 30MG DR CAPSULE PO SCH ×2 (10:30→20:48)
[2018-11-24] MEDS: ENOXAPARIN 80MG/0.8ML SYR SUBCUT SCH ×2 (10:31→20:49)
[2018-11-24] MEDS: DIGOXIN 125MCG TABLET PO SCH (17:31)
[2018-11-24] MEDS: GABAPENTIN 300MG CAPSULE PO SCH (20:48)
[2018-11-25] VITALS (12 sets, daily range): BP systolic 103–147; BP diastolic 44–85
[2018-11-25] MEDS: IPRATROPIUM/ALBUTEROL 0.5-3(2.5)MG/3ML NEB HHN SCH ×7 (02:13→23:28)
[2018-11-25] MEDS: PIPERACILLIN/TAZ 3.375G PREMIX 50 ML IV SCH ×4 (05:19→23:54)
[2018-11-25] MEDS: BACLOFEN 10MG TABLET PO SCH ×3 (05:20→21:26)
[2018-11-25] MEDS: OMEPRAZOLE 20MG CAPSULE EXTENDED RELEASE PO SCH (06:35)
[2018-11-25] MEDS: BLOOD SUGAR DIAGNOSTIC STRIP TEST SCH ×4 (07:30→21:26)
[2018-11-25] MEDS: INSULIN LISPRO 100 UNITS/ML SUBCUT SCH ×7 (08:51→21:40)
[2018-11-25] MEDS: CELECOXIB 100MG CAPSULE PO SCH ×2 (08:52→17:56)
[2018-11-25] MEDS: DULOXETINE HCL 30MG DR CAPSULE PO SCH ×2 (08:52→21:25)
[2018-11-25] MEDS: DILTIAZEM HCL 120MG CAPSULE CD 24HR PO SCH (08:53)
[2018-11-25] MEDS: ENOXAPARIN 80MG/0.8ML SYR SUBCUT SCH ×2 (08:54→21:27)
[2018-11-25] MEDS: BUSPIRONE HCL 5MG TABLET PO SCH ×2 (09:00→21:25)
[2018-11-25 09:09] LABS: BASOPHILS % 1.1 % (0.0-2.0); HEMATOCRIT. 37.6 % (36.0-48.0); HEMOGLOBIN. 11.9 g/dL (12.0-16.0); LYMPHOCYTES % 16.4 % (20.0-50.0); MEAN CORPUSCULAR HEMOGLOBIN 28.5 pg (28.0-32.0); MEAN CORPUSCULAR VOLUME 90.5 fL (81.0-99.0); MEAN PLATELET VOLUME 9.1 fl (7.4-10.4); MONOCYTES % 10.9 % (2.0-8.0); NEUTROPHILS % 69.6 % (40.0-76.0); PLATELET 450 x1000/uL (130-400); RED BLOOD CELL COUNT 4.16 mill/uL (4.2-5.4); RED CELL DISTRIBUTION WIDTH 16.2 % (11.6-14.6)
[2018-11-25 09:29] LABS: CHLORIDE 100 mEq/L (98-107)
[2018-11-25 09:37] LABS: PHOSPHORUS 3.1 mg/dL (2.5-4.9)
[2018-11-25] MEDS: DIGOXIN 125MCG TABLET PO SCH (17:56)
[2018-11-25] MEDS: GABAPENTIN 300MG CAPSULE PO SCH (21:25)
[2018-11-25] MEDS: MUPIROCIN 2% OINT 22GM NS SCH (21:29)
[2018-11-26] VITALS (11 sets, daily range): BP systolic 118–158; BP diastolic 42–88
[2018-11-26] MEDS: IPRATROPIUM/ALBUTEROL 0.5-3(2.5)MG/3ML NEB HHN SCH ×8 (01:58→23:56)
[2018-11-26] MEDS: BACLOFEN 10MG TABLET PO SCH ×3 (05:45→21:19)
[2018-11-26] MEDS: PIPERACILLIN/TAZ 3.375G PREMIX 50 ML IV SCH ×4 (05:45→23:18)
[2018-11-26] MEDS: BLOOD SUGAR DIAGNOSTIC STRIP TEST SCH ×4 (07:52→21:14)
[2018-11-26] MEDS: MUPIROCIN 2% OINT 22GM NS SCH ×2 (08:21→21:21)
[2018-11-26] MEDS: BUSPIRONE HCL 5MG TABLET PO SCH ×2 (08:21→21:13)
[2018-11-26] MEDS: ENOXAPARIN 80MG/0.8ML SYR SUBCUT SCH ×2 (08:22→21:13)
[2018-11-26] MEDS: CELECOXIB 100MG CAPSULE PO SCH ×2 (08:22→16:29)
[2018-11-26] MEDS: DULOXETINE HCL 30MG DR CAPSULE PO SCH ×2 (08:22→21:13)
[2018-11-26] MEDS: DILTIAZEM HCL 120MG CAPSULE CD 24HR PO SCH (08:22)
[2018-11-26] MEDS: FAMOTIDINE 20MG TABLET PO SCH ×2 (08:23→21:13)
[2018-11-26] MEDS: INSULIN LISPRO 100 UNITS/ML SUBCUT SCH ×7 (08:24→21:18)
[2018-11-26] MEDS ORDERED: NON FORMULARY PATIENT HOME MED SUBCUT SCH (13:45)
[2018-11-26] MEDS: DIGOXIN 125MCG TABLET PO SCH (17:23)
[2018-11-26] MEDS ORDERED: INSULIN LISPRO 100 UNITS/ML SUBCUT SCH (17:30)
[2018-11-26] MEDS: GABAPENTIN 300MG CAPSULE PO SCH (21:13)
[2018-11-26] MEDS: INSULIN GLARGINE UD 100 UNITS/ML SYR SUBCUT SCH (21:20)
[2018-11-27] VITALS (12 sets, daily range): BP systolic 107–151; BP diastolic 43–89
[2018-11-27] MEDS: IPRATROPIUM/ALBUTEROL 0.5-3(2.5)MG/3ML NEB HHN SCH ×6 (03:56→20:40)
[2018-11-27] MEDS: BACLOFEN 10MG TABLET PO SCH ×3 (05:15→21:54)
[2018-11-27] MEDS: PIPERACILLIN/TAZ 3.375G PREMIX 50 ML IV SCH ×3 (05:15→17:39)
[2018-11-27] MEDS: BLOOD SUGAR DIAGNOSTIC STRIP TEST SCH ×4 (07:41→21:00)
[2018-11-27] MEDS: INSULIN LISPRO 100 UNITS/ML SUBCUT SCH ×7 (08:31→21:00)
[2018-11-27] MEDS: MUPIROCIN 2% OINT 22GM NS SCH ×2 (08:50→21:54)
[2018-11-27] MEDS: ENOXAPARIN 80MG/0.8ML SYR SUBCUT SCH ×2 (08:50→21:59)
[2018-11-27] MEDS: DULOXETINE HCL 30MG DR CAPSULE PO SCH ×2 (08:50→21:54)
[2018-11-27] MEDS: CELECOXIB 100MG CAPSULE PO SCH ×2 (08:51→17:39)
[2018-11-27] MEDS: BUSPIRONE HCL 5MG TABLET PO SCH (08:51)
[2018-11-27] MEDS: DILTIAZEM HCL 120MG CAPSULE CD 24HR PO SCH (08:51)
[2018-11-27] MEDS: FAMOTIDINE 20MG TABLET PO SCH ×2 (08:51→21:54)
[2018-11-27 17:07] LABS: BASOPHILS % 0.8 % (0.0-2.0); EOSINOPHILS % 2.1 % (0.0-5.0); HEMATOCRIT. 36.3 % (36.0-48.0); HEMOGLOBIN. 11.4 g/dL (12.0-16.0); LYMPHOCYTES % 17.4 % (20.0-50.0); MEAN CORPUSCULAR HEMOGLOBIN 28.6 pg (28.0-32.0); MEAN CORPUSCULAR VOLUME 91.2 fL (81.0-99.0); MEAN PLATELET VOLUME 9.2 fl (7.4-10.4); MONOCYTES % 9.6 % (2.0-8.0); NEUTROPHILS % 70.1 % (40.0-76.0); PLATELET 384 x1000/uL (130-400); RED BLOOD CELL COUNT 3.98 mill/uL (4.2-5.4); RED CELL DISTRIBUTION WIDTH 16.2 % (11.6-14.6)
[2018-11-27 17:12] LABS: CHLORIDE 104 mEq/L (98-107)
[2018-11-27 17:17] LABS: PHOSPHORUS 1.6 mg/dL (2.5-4.9)
[2018-11-27] MEDS: DIGOXIN 125MCG TABLET PO SCH (17:38)
[2018-11-27] MEDS ORDERED: POTASSIUM-SODIUM PHOSPHATE POWDER PACKET PO NR (21:07)
[2018-11-27] MEDS: GABAPENTIN 300MG CAPSULE PO SCH (21:54)
[2018-11-27] MEDS: INSULIN GLARGINE UD 100 UNITS/ML SYR SUBCUT SCH (21:55)
[2018-11-28] VITALS (12 sets, daily range): BP systolic 98–139; BP diastolic 47–72
[2018-11-28] MEDS: PIPERACILLIN/TAZ 3.375G PREMIX 50 ML IV SCH ×5 (00:15→23:49)
[2018-11-28] MEDS: BUSPIRONE HCL 5MG TABLET PO SCH ×2 (00:15→10:04)
[2018-11-28] MEDS: IPRATROPIUM/ALBUTEROL 0.5-3(2.5)MG/3ML NEB HHN SCH ×8 (00:17→22:27)
[2018-11-28] MEDS: BACLOFEN 10MG TABLET PO SCH ×3 (06:15→20:45)
[2018-11-28] MEDS: INSULIN LISPRO 100 UNITS/ML SUBCUT SCH ×7 (06:51→20:46)
[2018-11-28] MEDS: BLOOD SUGAR DIAGNOSTIC STRIP TEST SCH ×4 (06:51→20:46)
[2018-11-28] MEDS: DILTIAZEM HCL 120MG CAPSULE CD 24HR PO SCH (09:00)
[2018-11-28] MEDS: ENOXAPARIN 80MG/0.8ML SYR SUBCUT SCH ×2 (10:04→20:45)
[2018-11-28] MEDS: POTASSIUM-SODIUM PHOSPHATE POWDER PACKET PO SCH ×2 (10:04→16:45)
[2018-11-28] MEDS: CELECOXIB 100MG CAPSULE PO SCH ×2 (10:05→16:45)
[2018-11-28] MEDS: FAMOTIDINE 20MG TABLET PO SCH ×2 (10:05→20:45)
[2018-11-28] MEDS: DULOXETINE HCL 30MG DR CAPSULE PO SCH ×2 (10:05→20:45)
[2018-11-28] MEDS: MUPIROCIN 2% OINT 22GM NS SCH ×2 (10:06→20:46)
[2018-11-28 13:47] LABS: HEMATOCRIT. 36.1 % (36.0-48.0); HEMOGLOBIN. 11.3 g/dL (12.0-16.0); MEAN CORPUSCULAR HEMOGLOBIN 28.6 pg (28.0-32.0); MEAN CORPUSCULAR VOLUME 91.3 fL (81.0-99.0); MEAN PLATELET VOLUME 9.1 fl (7.4-10.4); PLATELET 347 x1000/uL (130-400); RED BLOOD CELL COUNT 3.95 mill/uL (4.2-5.4); RED CELL DISTRIBUTION WIDTH 16.3 % (11.6-14.6)
[2018-11-28 13:54] LABS: CHLORIDE 105 mEq/L (98-107)
[2018-11-28 13:59] LABS: PHOSPHORUS 2.6 mg/dL (2.5-4.9)
[2018-11-28 15:44] LABS: PLATELET ESTIMATE NORMAL
[2018-11-28] MEDS: DIGOXIN 125MCG TABLET PO SCH (17:00)
[2018-11-28] MEDS: METHYLPREDNISOLONE SOD SUCC 40 MG/ML VIAL IV SCH (20:05)
[2018-11-28] MEDS: GABAPENTIN 300MG CAPSULE PO SCH (20:45)
[2018-11-28 21:18] LABS: BG CARBOXYHEMOGLOBIN 0.8 % (0.5-1.5); BG DEOXYHEMOGLOBIN 3.5 % (0.0-5.0); BG FRACTION INSPIRED OXYGEN 32; BG HCO3 ACT 33.4 mmol/L (22.0-26.0); BG METHEMOGLOBIN 0.1 % (0.0-1.5); BG OXYGEN SATURATION 96.5 % (92.0-98.5); BG OXYHEMOGLOBIN 95.6 % (94.0-97.0); BG PCO2 50.1 mmHg (35.0-45.0); BG PH 7.442 (7.350-7.450); BG PO2 84.7 mmHg (75.0-100.0); BG SAMPLE SITE RIGHT RADIAL; BG TOTAL HEMOGLOBIN 12.4 g/dL (12.0-18.0); BG VENT MODE NASAL CANNULA
[2018-11-28] MEDS: INSULIN GLARGINE UD 100 UNITS/ML SYR SUBCUT SCH ×2 (22:00→23:50)
[2018-11-29] VITALS (9 sets, daily range): BP systolic 118–145; BP diastolic 53–69
[2018-11-29] MEDS: IPRATROPIUM/ALBUTEROL 0.5-3(2.5)MG/3ML NEB HHN SCH ×7 (02:03→23:42)
[2018-11-29] MEDS: METHYLPREDNISOLONE SOD SUCC 40 MG/ML VIAL IV SCH ×3 (05:27→20:27)
[2018-11-29] MEDS: BACLOFEN 10MG TABLET PO SCH ×3 (05:27→22:20)
[2018-11-29] MEDS: PIPERACILLIN/TAZ 3.375G PREMIX 50 ML IV SCH ×3 (05:27→17:21)
[2018-11-29] MEDS: BLOOD SUGAR DIAGNOSTIC STRIP TEST SCH ×4 (08:23→20:28)
[2018-11-29] MEDS: POTASSIUM-SODIUM PHOSPHATE POWDER PACKET PO SCH ×2 (08:36→17:21)
[2018-11-29] MEDS: FAMOTIDINE 20MG TABLET PO SCH ×2 (08:36→20:27)
[2018-11-29] MEDS: CELECOXIB 100MG CAPSULE PO SCH ×2 (08:36→17:21)
[2018-11-29] MEDS: DILTIAZEM HCL 120MG CAPSULE CD 24HR PO SCH (08:36)
[2018-11-29] MEDS: ENOXAPARIN 80MG/0.8ML SYR SUBCUT SCH ×2 (08:37→20:28)
[2018-11-29] MEDS: INSULIN LISPRO 100 UNITS/ML SUBCUT SCH ×7 (08:40→20:44)
[2018-11-29] MEDS: MUPIROCIN 2% OINT 22GM NS SCH ×2 (08:44→20:29)
[2018-11-29] MEDS: DULOXETINE HCL 30MG DR CAPSULE PO SCH ×2 (08:45→20:28)
[2018-11-29] MEDS: DIGOXIN 125MCG TABLET PO SCH (17:21)
[2018-11-29] MEDS: GABAPENTIN 300MG CAPSULE PO SCH (20:27)
[2018-11-29] MEDS: INSULIN GLARGINE UD 100 UNITS/ML SYR SUBCUT SCH (22:23)
[2018-11-30] VITALS (11 sets, daily range): BP systolic 117–149; BP diastolic 47–98
[2018-11-30] MEDS: PIPERACILLIN/TAZ 3.375G PREMIX 50 ML IV SCH (00:08)
[2018-11-30] MEDS: IPRATROPIUM/ALBUTEROL 0.5-3(2.5)MG/3ML NEB HHN SCH ×8 (02:48→20:58)
[2018-11-30] MEDS: METHYLPREDNISOLONE SOD SUCC 40 MG/ML VIAL IV SCH ×3 (04:17→20:05)
[2018-11-30] MEDS: BACLOFEN 10MG TABLET PO SCH ×3 (05:05→21:02)
[2018-11-30] MEDS: BLOOD SUGAR DIAGNOSTIC STRIP TEST SCH ×4 (07:30→20:51)
[2018-11-30] MEDS: INSULIN LISPRO 100 UNITS/ML SUBCUT SCH ×7 (09:05→20:55)
[2018-11-30] MEDS: DILTIAZEM HCL 120MG CAPSULE CD 24HR PO SCH (09:07)
[2018-11-30] MEDS: CELECOXIB 100MG CAPSULE PO SCH ×2 (09:07→17:42)
[2018-11-30] MEDS: ENOXAPARIN 80MG/0.8ML SYR SUBCUT SCH ×2 (09:07→20:51)
[2018-11-30] MEDS: DULOXETINE HCL 30MG DR CAPSULE PO SCH ×2 (09:07→20:50)
[2018-11-30] MEDS: FAMOTIDINE 20MG TABLET PO SCH ×2 (09:08→20:50)
[2018-11-30] MEDS: POTASSIUM-SODIUM PHOSPHATE POWDER PACKET PO SCH ×2 (09:08→17:42)
[2018-11-30] MEDS: MUPIROCIN 2% OINT 22GM NS SCH (09:11)
[2018-11-30] MEDS: DIGOXIN 125MCG TABLET PO SCH (17:42)
[2018-11-30] MEDS: GABAPENTIN 300MG CAPSULE PO SCH (20:50)
[2018-11-30] MEDS: INSULIN GLARGINE UD 100 UNITS/ML SYR SUBCUT SCH (22:01)
== END 2018-11-30 23:27 | DRG 193 ==
LOC: ER 13:36 → 5EST 16:30 → EDBEDREQ 16:39 → ENRESERV 16:52 → ER 17:27
PROVIDERS: ADMIT Internal Medicine; ATTEND Internal Medicine
PROC: 02HV33Z Insertion of Infusion Device into Superior Vena Cava, Percutaneous Approach (ICD-10-PCS; principal; 2018-11-24)
PROC: B548ZZA Ultrasonography of Superior Vena Cava, Guidance (ICD-10-PCS; 2018-11-24)
DX: J18.9 Pneumonia, unspecified organism (principal); J96.92 Respiratory failure, unspecified with hypercapnia; J44.0 Chronic obstructive pulmonary disease with (acute) lower respiratory infection; J44.1 Chronic obstructive pulmonary disease with (acute) exacerbation; I44.2 Atrioventricular block, complete; I42.0 Dilated cardiomyopathy; I50.22 Chronic systolic (congestive) heart failure; I48.91 Unspecified atrial fibrillation; J20.9 Acute bronchitis, unspecified; E10.65 Type 1 diabetes mellitus with hyperglycemia; E83.39 Other disorders of phosphorus metabolism; E87.6 Hypokalemia; I11.0 Hypertensive heart disease with heart failure; M19.90 Unspecified osteoarthritis, unspecified site; I25.10 Atherosclerotic heart disease of native coronary artery without angina pectoris; F41.9 Anxiety disorder, unspecified; I87.2 Venous insufficiency (chronic) (peripheral); K21.9 Gastro-esophageal reflux disease without esophagitis; E10.42 Type 1 diabetes mellitus with diabetic polyneuropathy; M06.9 Rheumatoid arthritis, unspecified; Z79.01 Long term (current) use of anticoagulants; Z79.4 Long term (current) use of insulin; Z87.01 Personal history of pneumonia (recurrent); Z87.891 Personal history of nicotine dependence; Z95.810 Presence of automatic (implantable) cardiac defibrillator; Z88.5 Allergy status to narcotic agent; Z88.2 Allergy status to sulfonamides
CPT/HCPCS: 36415; 36569; 36600; 71045; 76937; 80048; 82375; 82805; 82962; 83605; 83735; 84100; 84145; 84484; 85651; 87070; 93005; 94640; 94644; 96365; 96366; 96375; 97116; 97162; 97166; 97530; 97535; 99291; C1725; C1893; J1650; J1815; J1956; J2060; J2543; J2920; J2930; J3475; J3490; J7050; J7611; J7620

== ENCOUNTER 2019-01-22 06:26 | Inpatient (IN) | payer MEDICARE, MEDICAID ==
[~2019-01-22] VITALS: Ht 165.1 cm; Wt 78.0 kg
[2019-01-22] VITALS (10 sets, daily range): BP systolic 101–134; BP diastolic 48–68
[~2019-01-22 06:26] MED LIST changes: +ACYC15OI7 TP; +ACYC5CRE3 TP; +APIX5TAB PO; +DULO30CA51 PO; +FLOV44 IH; +FLUT1BLS3 IH; +FLUT1DIS2 INH; +GLUC1VIA6 PO; +LEVA0.6320 NEB; +LORA-249 PO; +POTA20TA82 PO; +SIME125C MT; +TIOT18CA3 IH; -duloxetine
[2019-01-22] MEDS ORDERED: ALBUTEROL (0.083%) 2.5MG/3ML NEB HHN STA (06:52)
[2019-01-22] MEDS ORDERED: IPRATROPIUM BROMIDE (0.02%) 0.5MG/2.5ML NEB HHN STA (06:52)
[2019-01-22] MEDS ORDERED: METHYLPREDNISOLONE SOD SUCC 125 MG/2 ML VIAL IV STA (06:52)
[2019-01-22] MEDS ORDERED: MAGNESIUM 2 G PREMIX 50 ML IV ONE (07:30)
[2019-01-22] MEDS ORDERED: AZITHROMYCIN 500 MG in DEXT 5% WATER 250 ML IV ONE (07:45)
[2019-01-22] MEDS ORDERED: ASPIRIN 81MG TABLET PO ONE (07:45)
[2019-01-22] MEDS ORDERED: CEFTRIAXONE 1 G PREMIX 50 ML IV ONE (07:45)
[2019-01-22 07:48] LABS: BASOPHILS % 0.2 % (0.0-2.0); HEMATOCRIT. 43.6 % (36.0-48.0); HEMOGLOBIN. 13.7 g/dL (12.0-16.0); LYMPHOCYTES % 7.9 % (20.0-50.0); MEAN CORPUSCULAR HEMOGLOBIN 28.8 pg (28.0-32.0); MEAN CORPUSCULAR VOLUME 91.7 fL (81.0-99.0); MEAN PLATELET VOLUME 8.7 fl (7.4-10.4); MONOCYTES % 3.6 % (2.0-8.0); NEUTROPHILS % 88.3 % (40.0-76.0); PLATELET 327 x1000/uL (130-400); RED BLOOD CELL COUNT 4.76 mill/uL (4.2-5.4); RED CELL DISTRIBUTION WIDTH 15.6 % (11.6-14.6)
[2019-01-22 07:55] LABS: CHLORIDE 99 mEq/L (98-107)
[2019-01-22 08:16] LABS: BG BASE EXCESS 2.9 mmol/L (-2.0-2.0); BG BILEVEL POS AIRWAY PRESSURE 15/5; BG DEOXYHEMOGLOBIN 4.3 % (0.0-5.0); BG HCO3 ACT 27.8 mmol/L (22.0-26.0); BG OXYGEN SATURATION 95.7 % (92.0-98.5); BG OXYHEMOGLOBIN 94.7 % (94.0-97.0); BG PCO2 43.8 mmHg (35.0-45.0); BG PH 7.421 (7.350-7.450); BG PO2 81.8 mmHg (75.0-100.0); BG SAMPLE SITE RIGHT BRACHIAL; BG TOTAL HEMOGLOBIN 12.7 g/dL (12.0-18.0); BG VENT MODE MASK - BIPAP; BG VENT RATE 16 set
[2019-01-22] MEDS ORDERED: DEXTROSE 50% WATER 50ML SYRINGE IV PRN (14:30)
[2019-01-22 15:32] LABS: BG BASE EXCESS 4.9 mmol/L (-2.0-2.0); BG BILEVEL POS AIRWAY PRESSURE ST=15/5; BG CARBOXYHEMOGLOBIN 0.8 % (0.5-1.5); BG DEOXYHEMOGLOBIN 1.6 % (0.0-5.0); BG FRACTION INSPIRED OXYGEN 40; BG HCO3 ACT 29.7 mmol/L (22.0-26.0); BG OXYGEN SATURATION 98.4 % (92.0-98.5); BG OXYHEMOGLOBIN 97.6 % (94.0-97.0); BG PCO2 44.5 mmHg (35.0-45.0); BG PH 7.442 (7.350-7.450); BG PO2 129.9 mmHg (75.0-100.0); BG PRESSURE SUPPORT 10; BG SAMPLE SITE RIGHT BRACHIAL; BG TOTAL HEMOGLOBIN 12.9 g/dL (12.0-18.0); BG VENT MODE MASK - BIPAP; BG VENT RATE 16 set
[2019-01-22] MEDS: IPRATROPIUM/ALBUTEROL 0.5-3(2.5)MG/3ML NEB HHN SCH ×3 (16:16→22:17)
[2019-01-22] MEDS: BLOOD SUGAR DIAGNOSTIC STRIP TEST SCH ×2 (17:52→21:43)
[2019-01-22] MEDS ORDERED: DIGOXIN 500MCG/2ML AMP IV SCH (18:00)
[2019-01-22] MEDS: PIPERACILLIN/TAZ 3.375G PREMIX 50 ML IV SCH (18:29)
[2019-01-22] MEDS: INSULIN LISPRO 100 UNITS/ML SUBCUT SCH ×2 (18:29→21:00)
[2019-01-22] MEDS: ENOXAPARIN 40MG/0.4ML SYR SUBCUT SCH (18:30)
[2019-01-22 18:41] LABS: CLARITY URINE CLEAR (CLEAR); COLOR URINE YELLOW (YELLOW); KETONES URINE 3+ (NEGATIVE); LEUKOCYTE ESTERASE URINE NEGATIVE (NEGATIVE); NITRITE URINE NEGATIVE (NEGATIVE); OCCULT BLOOD URINE 2+ (NEGATIVE); PH URINE 6.5 (4.5-8.0); PROTEIN URINE 2+ (NEGATIVE); SPECIFIC GRAVITY URINE 1.035 (1.005-1.030)
[2019-01-23] VITALS (11 sets, daily range): BP systolic 119–156; BP diastolic 55–79
[2019-01-23] MEDS: PIPERACILLIN/TAZ 3.375G PREMIX 50 ML IV SCH ×4 (00:14→18:24)
[2019-01-23] MEDS: IPRATROPIUM/ALBUTEROL 0.5-3(2.5)MG/3ML NEB HHN SCH ×6 (00:45→20:55)
[2019-01-23] MEDS: ENOXAPARIN 40MG/0.4ML SYR SUBCUT SCH (08:59)
[2019-01-23] MEDS: METHYLPREDNISOLONE SOD SUCC 40 MG/ML VIAL IV SCH (08:59)
[2019-01-23] MEDS ORDERED: ONDANSETRON HCL 4MG/2ML INJ IV PRN (10:00)
[2019-01-23] MEDS ORDERED: IPRATROPIUM/ALBUTEROL 0.5-3(2.5)MG/3ML NEB HHN PRN (10:00)
[2019-01-23] MEDS ORDERED: INSULIN LISPRO 100 UNITS/ML SUBCUT SCH ×2 (12:00→12:30)
[2019-01-23] MEDS: BLOOD SUGAR DIAGNOSTIC STRIP TEST SCH ×3 (12:21→21:30)
[2019-01-23] MEDS: CELECOXIB 100MG CAPSULE PO SCH ×2 (13:01→21:30)
[2019-01-23] MEDS: BUSPIRONE HCL 10MG TABLET PO SCH ×2 (13:01→21:30)
[2019-01-23] MEDS: BACLOFEN 10MG TABLET PO SCH ×2 (13:01→21:23)
[2019-01-23] MEDS: INSULIN LISPRO 100 UNITS/ML SUBCUT SCH ×3 (13:02→21:34)
[2019-01-23] MEDS: DULOXETINE HCL 30MG DR CAPSULE PO SCH (13:04)
[2019-01-23] MEDS: HYDROCODONE/ACETAMINOPHEN 10/325MG TABLET PO PRN (13:14)
[2019-01-23] MEDS: PANTOPRAZOLE SODIUM 40 MG/VIAL IV SCH (15:55)
[2019-01-23 16:08] LABS: CHLORIDE 102 mEq/L (98-107)
[2019-01-23 16:13] LABS: PHOSPHORUS 2.6 mg/dL (2.5-4.9)
[2019-01-23 18:06] LABS: HEMATOCRIT. 37.5 % (36.0-48.0); HEMOGLOBIN. 11.8 g/dL (12.0-16.0); MEAN CORPUSCULAR HEMOGLOBIN 28.6 pg (28.0-32.0); MEAN CORPUSCULAR VOLUME 90.7 fL (81.0-99.0); MEAN PLATELET VOLUME 9.4 fl (7.4-10.4); PLATELET 397 x1000/uL (130-400); RED BLOOD CELL COUNT 4.13 mill/uL (4.2-5.4); RED CELL DISTRIBUTION WIDTH 14.9 % (11.6-14.6)
[2019-01-23] MEDS: DIGOXIN 125MCG TABLET PO SCH (18:24)
[2019-01-23] MEDS: APIXABAN 5 MG TABLET PO SCH (18:24)
[2019-01-23 19:48] LABS: PLATELET ESTIMATE NORMAL
[2019-01-23] MEDS: GABAPENTIN 300MG CAPSULE PO SCH (21:23)
[2019-01-24] VITALS (13 sets, daily range): BP systolic 113–151; BP diastolic 55–91
[2019-01-24] MEDS: IPRATROPIUM/ALBUTEROL 0.5-3(2.5)MG/3ML NEB HHN SCH ×6 (00:35→20:47)
[2019-01-24] MEDS: PIPERACILLIN/TAZ 3.375G PREMIX 50 ML IV SCH ×5 (00:44→23:54)
[2019-01-24] MEDS: BACLOFEN 10MG TABLET PO SCH ×3 (05:39→21:38)
[2019-01-24 06:30] LABS: CHLORIDE 100 mEq/L (98-107)
[2019-01-24 06:32] LABS: HEMATOCRIT. 34.7 % (36.0-48.0); HEMOGLOBIN. 11.1 g/dL (12.0-16.0); MEAN CORPUSCULAR HEMOGLOBIN 28.9 pg (28.0-32.0); MEAN CORPUSCULAR VOLUME 90.1 fL (81.0-99.0); PLATELET 369 x1000/uL (130-400); RED BLOOD CELL COUNT 3.85 mill/uL (4.2-5.4); RED CELL DISTRIBUTION WIDTH 15.4 % (11.6-14.6)
[2019-01-24 06:51] LABS: PHOSPHORUS 2.1 mg/dL (2.5-4.9)
[2019-01-24 07:23] LABS: PLATELET ESTIMATE NORMAL
[2019-01-24] MEDS: BLOOD SUGAR DIAGNOSTIC STRIP TEST SCH ×4 (07:44→22:00)
[2019-01-24] MEDS: DULOXETINE HCL 30MG DR CAPSULE PO SCH (08:32)
[2019-01-24] MEDS: CELECOXIB 100MG CAPSULE PO SCH ×2 (08:32→21:37)
[2019-01-24] MEDS: METHYLPREDNISOLONE SOD SUCC 40 MG/ML VIAL IV SCH (08:32)
[2019-01-24] MEDS: PANTOPRAZOLE SODIUM 40 MG/VIAL IV SCH (08:32)
[2019-01-24] MEDS: BUSPIRONE HCL 10MG TABLET PO SCH ×2 (08:32→21:36)
[2019-01-24] MEDS: APIXABAN 5 MG TABLET PO SCH ×2 (08:33→17:35)
[2019-01-24] MEDS: INSULIN LISPRO 100 UNITS/ML SUBCUT SCH ×4 (08:34→22:43)
[2019-01-24] MEDS ORDERED: POTASSIUM PHOS,M-BASIC-D-BASIC 20 MMOL in DEXT 5% WATER 250 ML IV SCH (10:30)
[2019-01-24] MEDS: HYDROCODONE/ACETAMINOPHEN 10/325MG TABLET PO PRN (14:00)
[2019-01-24] MEDS: DIGOXIN 125MCG TABLET PO SCH (17:35)
[2019-01-24] MEDS: GABAPENTIN 300MG CAPSULE PO SCH (21:38)
[2019-01-25] VITALS (10 sets, daily range): BP systolic 111–155; BP diastolic 64–79
[2019-01-25] MEDS: IPRATROPIUM/ALBUTEROL 0.5-3(2.5)MG/3ML NEB HHN SCH ×3 (02:17→21:02)
[2019-01-25] MEDS: BLOOD SUGAR DIAGNOSTIC STRIP TEST SCH ×4 (05:05→21:48)
[2019-01-25] MEDS: BACLOFEN 10MG TABLET PO SCH ×3 (06:43→21:47)
[2019-01-25] MEDS: PIPERACILLIN/TAZ 3.375G PREMIX 50 ML IV SCH ×3 (06:43→17:17)
[2019-01-25 08:41] LABS: HEMATOCRIT. 35.5 % (36.0-48.0); HEMOGLOBIN. 11.4 g/dL (12.0-16.0); MEAN CORPUSCULAR HEMOGLOBIN 29.2 pg (28.0-32.0); MEAN CORPUSCULAR VOLUME 91.1 fL (81.0-99.0); MEAN PLATELET VOLUME 8.8 fl (7.4-10.4); PLATELET 370 x1000/uL (130-400); RED CELL DISTRIBUTION WIDTH 14.9 % (11.6-14.6)
[2019-01-25 09:03] LABS: CHLORIDE 101 mEq/L (98-107)
[2019-01-25 09:12] LABS: PHOSPHORUS 2.1 mg/dL (2.5-4.9)
[2019-01-25 09:28] LABS: DIGOXIN 0.7 ng/mL (0.9-2.0)
[2019-01-25] MEDS: DULOXETINE HCL 30MG DR CAPSULE PO SCH (10:53)
[2019-01-25] MEDS: APIXABAN 5 MG TABLET PO SCH ×2 (10:53→17:16)
[2019-01-25] MEDS: BUSPIRONE HCL 10MG TABLET PO SCH ×2 (10:53→21:47)
[2019-01-25] MEDS: PANTOPRAZOLE SODIUM 40 MG/VIAL IV SCH (10:54)
[2019-01-25] MEDS: CELECOXIB 100MG CAPSULE PO SCH ×2 (10:54→21:47)
[2019-01-25] MEDS: METHYLPREDNISOLONE SOD SUCC 40 MG/ML VIAL IV SCH (10:54)
[2019-01-25] MEDS: INSULIN LISPRO 100 UNITS/ML SUBCUT SCH ×4 (11:18→21:44)
[2019-01-25] MEDS: HYDROCODONE/ACETAMINOPHEN 10/325MG TABLET PO PRN (11:23)
[2019-01-25] MEDS: DIGOXIN 125MCG TABLET PO SCH (17:16)
[2019-01-25] MEDS ORDERED: POTASSIUM PHOS,M-BASIC-D-BASIC 20 MMOL in DEXT 5% WATER 243.3333 ML IV NR (18:30)
[2019-01-25] MEDS: NYSTATIN POWDER 15GM TOP SCH (20:30)
[2019-01-25 21:00] LABS: PLATELET ESTIMATE NORMAL
[2019-01-25] MEDS: GABAPENTIN 300MG CAPSULE PO SCH (21:47)
[2019-01-26] VITALS (13 sets, daily range): BP systolic 109–170; BP diastolic 51–93
[2019-01-26] MEDS: PIPERACILLIN/TAZ 3.375G PREMIX 50 ML IV SCH ×4 (00:27→17:50)
[2019-01-26] MEDS: IPRATROPIUM/ALBUTEROL 0.5-3(2.5)MG/3ML NEB HHN SCH ×6 (01:56→21:18)
[2019-01-26 06:33] LABS: HEMATOCRIT. 37.1 % (36.0-48.0); HEMOGLOBIN. 11.7 g/dL (12.0-16.0); MEAN CORPUSCULAR HEMOGLOBIN 28.8 pg (28.0-32.0); MEAN PLATELET VOLUME 8.4 fl (7.4-10.4); PLATELET 386 x1000/uL (130-400); RED BLOOD CELL COUNT 4.07 mill/uL (4.2-5.4); RED CELL DISTRIBUTION WIDTH 15.2 % (11.6-14.6)
[2019-01-26] MEDS: BACLOFEN 10MG TABLET PO SCH ×3 (06:38→21:42)
[2019-01-26] MEDS: BLOOD SUGAR DIAGNOSTIC STRIP TEST SCH ×4 (07:30→21:00)
[2019-01-26 08:03] LABS: CHLORIDE 104 mEq/L (98-107)
[2019-01-26 08:12] LABS: PHOSPHORUS 2.2 mg/dL (2.5-4.9)
[2019-01-26] MEDS: APIXABAN 5 MG TABLET PO SCH ×2 (09:38→17:50)
[2019-01-26] MEDS: NYSTATIN POWDER 15GM TOP SCH ×2 (09:39→17:51)
[2019-01-26] MEDS: METHYLPREDNISOLONE SOD SUCC 40 MG/ML VIAL IV SCH (09:39)
[2019-01-26] MEDS: CELECOXIB 100MG CAPSULE PO SCH ×2 (09:39→21:40)
[2019-01-26] MEDS: FAMOTIDINE 20MG TABLET PO SCH (09:39)
[2019-01-26] MEDS: BUSPIRONE HCL 10MG TABLET PO SCH ×2 (09:39→21:41)
[2019-01-26] MEDS: INSULIN LISPRO 100 UNITS/ML SUBCUT SCH ×4 (09:42→21:00)
[2019-01-26] MEDS: DULOXETINE HCL 30MG DR CAPSULE PO SCH (09:42)
[2019-01-26 10:30] LABS: PLATELET ESTIMATE NORMAL
[2019-01-26] MEDS: DIGOXIN 125MCG TABLET PO SCH (17:50)
[2019-01-26] MEDS: GABAPENTIN 300MG CAPSULE PO SCH (21:40)
[2019-01-26] MEDS: CLONIDINE 0.1MG TABLET PO PRN (21:53)
[2019-01-27] VITALS (11 sets, daily range): BP systolic 108–169; BP diastolic 40–76
[2019-01-27] MEDS: PIPERACILLIN/TAZ 3.375G PREMIX 50 ML IV SCH ×5 (00:11→23:53)
[2019-01-27] MEDS: IPRATROPIUM/ALBUTEROL 0.5-3(2.5)MG/3ML NEB HHN SCH ×7 (01:05→23:58)
[2019-01-27] MEDS: BACLOFEN 10MG TABLET PO SCH ×3 (06:09→22:00)
[2019-01-27] MEDS: BLOOD SUGAR DIAGNOSTIC STRIP TEST SCH ×4 (07:30→21:47)
[2019-01-27] MEDS ORDERED: LIDOCAINE HCL 1% 20ML VIAL (Pyxis) INJ ONE (07:44)
[2019-01-27] MEDS: INSULIN LISPRO 100 UNITS/ML SUBCUT SCH ×4 (08:00→22:00)
[2019-01-27] MEDS: NYSTATIN POWDER 15GM TOP SCH ×2 (09:00→17:49)
[2019-01-27 10:28] LABS: HEMATOCRIT. 38.1 % (36.0-48.0); HEMOGLOBIN. 12.2 g/dL (12.0-16.0); MEAN CORPUSCULAR HEMOGLOBIN 29.2 pg (28.0-32.0); MEAN CORPUSCULAR VOLUME 91.1 fL (81.0-99.0); MEAN PLATELET VOLUME 8.2 fl (7.4-10.4); PLATELET 410 x1000/uL (130-400); RED BLOOD CELL COUNT 4.19 mill/uL (4.2-5.4)
[2019-01-27] MEDS: APIXABAN 5 MG TABLET PO SCH ×2 (10:30→17:48)
[2019-01-27] MEDS: CELECOXIB 100MG CAPSULE PO SCH ×2 (10:30→20:39)
[2019-01-27] MEDS: METHYLPREDNISOLONE SOD SUCC 40 MG/ML VIAL IV SCH (10:30)
[2019-01-27] MEDS: FAMOTIDINE 20MG TABLET PO SCH (10:30)
[2019-01-27] MEDS: BUSPIRONE HCL 10MG TABLET PO SCH ×2 (10:30→20:39)
[2019-01-27 10:43] LABS: CHLORIDE 105 mEq/L (98-107)
[2019-01-27 10:51] LABS: PHOSPHORUS 2.4 mg/dL (2.5-4.9)
[2019-01-27] MEDS: DULOXETINE HCL 30MG DR CAPSULE PO SCH (11:17)
[2019-01-27] MEDS: CLONIDINE 0.1MG TABLET PO PRN (15:53)
[2019-01-27] MEDS: DIGOXIN 125MCG TABLET PO SCH (17:49)
[2019-01-27] MEDS: GABAPENTIN 300MG CAPSULE PO SCH (20:40)
[2019-01-28] VITALS (11 sets, daily range): BP systolic 115–179; BP diastolic 59–89
[2019-01-28] MEDS: IPRATROPIUM/ALBUTEROL 0.5-3(2.5)MG/3ML NEB HHN SCH ×5 (04:00→20:53)
[2019-01-28] MEDS: PIPERACILLIN/TAZ 3.375G PREMIX 50 ML IV SCH ×4 (06:13→23:27)
[2019-01-28] MEDS: BACLOFEN 10MG TABLET PO SCH ×3 (06:16→22:05)
[2019-01-28 06:29] LABS: HEMATOCRIT. 37.8 % (36.0-48.0); HEMOGLOBIN. 12.5 g/dL (12.0-16.0); MEAN CORPUSCULAR HEMOGLOBIN 29.8 pg (28.0-32.0); MEAN CORPUSCULAR VOLUME 90.1 fL (81.0-99.0); MEAN PLATELET VOLUME 8.3 fl (7.4-10.4); PLATELET 440 x1000/uL (130-400); RED CELL DISTRIBUTION WIDTH 15.5 % (11.6-14.6)
[2019-01-28] MEDS: BLOOD SUGAR DIAGNOSTIC STRIP TEST SCH ×4 (07:30→20:30)
[2019-01-28] MEDS: INSULIN LISPRO 100 UNITS/ML SUBCUT SCH ×4 (08:00→20:43)
[2019-01-28 08:43] LABS: CHLORIDE 104 mEq/L (98-107)
[2019-01-28 08:55] LABS: PHOSPHORUS 3.5 mg/dL (2.5-4.9)
[2019-01-28] MEDS: CELECOXIB 100MG CAPSULE PO SCH ×2 (09:06→20:29)
[2019-01-28] MEDS: METHYLPREDNISOLONE SOD SUCC 40 MG/ML VIAL IV SCH (09:06)
[2019-01-28] MEDS: BUSPIRONE HCL 10MG TABLET PO SCH (09:06)
[2019-01-28] MEDS: FAMOTIDINE 20MG TABLET PO SCH (09:06)
[2019-01-28] MEDS: APIXABAN 5 MG TABLET PO SCH ×2 (09:06→18:11)
[2019-01-28] MEDS: NYSTATIN POWDER 15GM TOP SCH ×2 (09:07→17:00)
[2019-01-28] MEDS: DULOXETINE HCL 30MG DR CAPSULE PO SCH (09:11)
[2019-01-28 10:38] LABS: PLATELET ESTIMATE INCREASED
[2019-01-28] MEDS ORDERED: LORAZEPAM 1MG TABLET PO NR (15:57)
[2019-01-28] MEDS ORDERED: FUROSEMIDE 40MG/4ML VIAL IVP NR (16:45)
[2019-01-28 17:59] LABS: PLATELET ESTIMATE INCREASED
[2019-01-28] MEDS: DIGOXIN 125MCG TABLET PO SCH (18:11)
[2019-01-28] MEDS: GABAPENTIN 300MG CAPSULE PO SCH (20:29)
[2019-01-28] MEDS: BUSPIRONE HCL 5MG TABLET PO SCH (20:29)
[2019-01-29] VITALS (12 sets, daily range): BP systolic 102–141; BP diastolic 50–99
[2019-01-29] MEDS: IPRATROPIUM/ALBUTEROL 0.5-3(2.5)MG/3ML NEB HHN SCH ×6 (00:31→21:39)
[2019-01-29] MEDS: PIPERACILLIN/TAZ 3.375G PREMIX 50 ML IV SCH ×3 (05:08→17:07)
[2019-01-29] MEDS: BACLOFEN 10MG TABLET PO SCH ×3 (05:08→21:39)
[2019-01-29] MEDS: BLOOD SUGAR DIAGNOSTIC STRIP TEST SCH ×4 (07:30→20:45)
[2019-01-29] MEDS: CELECOXIB 100MG CAPSULE PO SCH ×2 (08:56→20:45)
[2019-01-29] MEDS: FAMOTIDINE 20MG TABLET PO SCH (08:56)
[2019-01-29] MEDS: METHYLPREDNISOLONE SOD SUCC 40 MG/ML VIAL IV SCH (08:57)
[2019-01-29] MEDS: DULOXETINE HCL 30MG DR CAPSULE PO SCH (08:57)
[2019-01-29] MEDS: APIXABAN 5 MG TABLET PO SCH ×2 (08:57→17:07)
[2019-01-29] MEDS: BUSPIRONE HCL 5MG TABLET PO SCH ×2 (08:57→20:45)
[2019-01-29] MEDS: INSULIN LISPRO 100 UNITS/ML SUBCUT SCH ×4 (08:58→21:09)
[2019-01-29] MEDS: NYSTATIN POWDER 15GM TOP SCH ×2 (08:59→17:08)
[2019-01-29] MEDS: DIGOXIN 125MCG TABLET PO SCH (17:07)
[2019-01-29] MEDS: GABAPENTIN 300MG CAPSULE PO SCH (20:44)
[2019-01-30] VITALS (12 sets, daily range): BP systolic 106–148; BP diastolic 29–78
[2019-01-30] MEDS: PIPERACILLIN/TAZ 3.375G PREMIX 50 ML IV SCH ×4 (00:17→17:59)
[2019-01-30] MEDS: IPRATROPIUM/ALBUTEROL 0.5-3(2.5)MG/3ML NEB HHN SCH ×6 (01:11→20:23)
[2019-01-30] MEDS: BACLOFEN 10MG TABLET PO SCH ×3 (05:29→20:59)
[2019-01-30] MEDS: BLOOD SUGAR DIAGNOSTIC STRIP TEST SCH ×4 (07:30→21:46)
[2019-01-30] MEDS: METHYLPREDNISOLONE SOD SUCC 40 MG/ML VIAL IV SCH (09:26)
[2019-01-30] MEDS: FAMOTIDINE 20MG TABLET PO SCH (09:26)
[2019-01-30] MEDS: BUSPIRONE HCL 5MG TABLET PO SCH ×2 (09:26→20:59)
[2019-01-30] MEDS: CELECOXIB 100MG CAPSULE PO SCH ×2 (09:26→20:59)
[2019-01-30] MEDS: DULOXETINE HCL 30MG DR CAPSULE PO SCH (09:26)
[2019-01-30] MEDS: APIXABAN 5 MG TABLET PO SCH ×2 (09:26→17:59)
[2019-01-30] MEDS: NYSTATIN POWDER 15GM TOP SCH ×2 (09:27→17:20)
[2019-01-30] MEDS: INSULIN LISPRO 100 UNITS/ML SUBCUT SCH ×4 (09:27→21:53)
[2019-01-30] MEDS ORDERED: INSULIN LISPRO 100 UNITS/ML SUBCUT SCH (13:00)
[2019-01-30] MEDS ORDERED: FUROSEMIDE 40MG/4ML VIAL IVP SCH (17:30)
[2019-01-30] MEDS ORDERED: POTASSIUM CHLORIDE 20MEQ TABLET SR PO SCH (17:30)
[2019-01-30] MEDS: DIGOXIN 125MCG TABLET PO SCH (17:59)
[2019-01-30] MEDS: GABAPENTIN 300MG CAPSULE PO SCH (20:59)
[2019-01-30] MEDS ORDERED: NON FORMULARY PATIENT HOME MED SUBCUT SCH (21:00)
[2019-01-30] MEDS: INSULIN GLARGINE UD 100 UNITS/ML SYR SUBCUT SCH (21:52)
[2019-01-31] VITALS (12 sets, daily range): BP systolic 115–179; BP diastolic 53–95
[2019-01-31] MEDS: IPRATROPIUM/ALBUTEROL 0.5-3(2.5)MG/3ML NEB HHN SCH ×6 (00:29→20:58)
[2019-01-31] MEDS: PIPERACILLIN/TAZ 3.375G PREMIX 50 ML IV SCH ×3 (06:00→18:14)
[2019-01-31] MEDS: INSULIN LISPRO 100 UNITS/ML SUBCUT SCH ×7 (07:30→20:52)
[2019-01-31] MEDS: BLOOD SUGAR DIAGNOSTIC STRIP TEST SCH ×4 (07:42→20:52)
[2019-01-31] MEDS: BACLOFEN 10MG TABLET PO SCH ×3 (07:59→22:19)
[2019-01-31] MEDS: FAMOTIDINE 20MG TABLET PO SCH (09:29)
[2019-01-31] MEDS: CELECOXIB 100MG CAPSULE PO SCH ×2 (09:32→20:51)
[2019-01-31] MEDS: APIXABAN 5 MG TABLET PO SCH ×2 (09:33→18:13)
[2019-01-31] MEDS: BUSPIRONE HCL 5MG TABLET PO SCH ×2 (09:34→20:51)
[2019-01-31] MEDS: PREDNISONE 20MG TABLET PO SCH (09:34)
[2019-01-31] MEDS: DULOXETINE HCL 30MG DR CAPSULE PO SCH (09:35)
[2019-01-31] MEDS: NYSTATIN POWDER 15GM TOP SCH ×2 (12:59→18:12)
[2019-01-31 16:51] LABS: EOSINOPHILS % 0.7 % (0.0-5.0); HEMATOCRIT. 38.1 % (36.0-48.0); HEMOGLOBIN. 12.2 g/dL (12.0-16.0); LYMPHOCYTES % 10.3 % (20.0-50.0); MEAN CORPUSCULAR HEMOGLOBIN 28.6 pg (28.0-32.0); MEAN CORPUSCULAR VOLUME 89.3 fL (81.0-99.0); MEAN PLATELET VOLUME 8.4 fl (7.4-10.4); MONOCYTES % 4.6 % (2.0-8.0); NEUTROPHILS % 83.4 % (40.0-76.0); PLATELET 521 x1000/uL (130-400); RED BLOOD CELL COUNT 4.26 mill/uL (4.2-5.4); RED CELL DISTRIBUTION WIDTH 15.4 % (11.6-14.6)
[2019-01-31 16:56] LABS: CHLORIDE 98 mEq/L (98-107)
[2019-01-31 17:02] LABS: PHOSPHORUS 2.6 mg/dL (2.5-4.9)
[2019-01-31] MEDS: DIGOXIN 125MCG TABLET PO SCH (18:13)
[2019-01-31] MEDS: GABAPENTIN 300MG CAPSULE PO SCH (20:51)
[2019-01-31] MEDS: INSULIN GLARGINE UD 100 UNITS/ML SYR SUBCUT SCH (22:20)
[2019-02-01] VITALS (7 sets, daily range): BP systolic 101–148; BP diastolic 33–76
[2019-02-01] MEDS: PIPERACILLIN/TAZ 3.375G PREMIX 50 ML IV SCH ×4 (00:13→17:47)
[2019-02-01] MEDS: IPRATROPIUM/ALBUTEROL 0.5-3(2.5)MG/3ML NEB HHN SCH ×8 (00:35→23:41)
[2019-02-01] MEDS: BACLOFEN 10MG TABLET PO SCH ×3 (05:56→22:50)
[2019-02-01] MEDS: BLOOD SUGAR DIAGNOSTIC STRIP TEST SCH ×4 (06:48→21:02)
[2019-02-01] MEDS: INSULIN LISPRO 100 UNITS/ML SUBCUT SCH ×7 (06:48→21:03)
[2019-02-01 07:04] LABS: BASOPHILS % 0.6 % (0.0-2.0); EOSINOPHILS % 0.2 % (0.0-5.0); HEMATOCRIT. 38.4 % (36.0-48.0); HEMOGLOBIN. 12.3 g/dL (12.0-16.0); LYMPHOCYTES % 14.3 % (20.0-50.0); MEAN CORPUSCULAR HEMOGLOBIN 28.9 pg (28.0-32.0); MEAN PLATELET VOLUME 8.4 fl (7.4-10.4); MONOCYTES % 5.2 % (2.0-8.0); NEUTROPHILS % 79.7 % (40.0-76.0); PLATELET 451 x1000/uL (130-400); RED BLOOD CELL COUNT 4.27 mill/uL (4.2-5.4); RED CELL DISTRIBUTION WIDTH 15.2 % (11.6-14.6)
[2019-02-01 07:53] LABS: CHLORIDE 103 mEq/L (98-107)
[2019-02-01 07:59] LABS: PHOSPHORUS 2.9 mg/dL (2.5-4.9)
[2019-02-01] MEDS: DULOXETINE HCL 30MG DR CAPSULE PO SCH (09:06)
[2019-02-01] MEDS: FAMOTIDINE 20MG TABLET PO SCH (09:06)
[2019-02-01] MEDS: PREDNISONE 20MG TABLET PO SCH (09:06)
[2019-02-01] MEDS: CELECOXIB 100MG CAPSULE PO SCH ×2 (09:06→21:02)
[2019-02-01] MEDS: APIXABAN 5 MG TABLET PO SCH ×2 (09:06→17:48)
[2019-02-01] MEDS: NYSTATIN POWDER 15GM TOP SCH ×2 (09:12→17:49)
[2019-02-01] MEDS: BUSPIRONE HCL 5MG TABLET PO SCH ×2 (14:18→21:01)
[2019-02-01] MEDS: DIGOXIN 125MCG TABLET PO SCH (17:47)
[2019-02-01] MEDS ORDERED: HYDROCODONE/ACETAMINOPHEN 10/325MG TABLET PO PRN (18:45)
[2019-02-01] MEDS: LORAZEPAM 1MG TABLET PO SCH (19:01)
[2019-02-01 20:08] LABS: BG BASE EXCESS 5.6 mmol/L (-2.0-2.0); BG BILEVEL POS AIRWAY PRESSURE 15/5; BG CARBOXYHEMOGLOBIN 0.2 % (0.5-1.5); BG DEOXYHEMOGLOBIN 2.5 % (0.0-5.0); BG FRACTION INSPIRED OXYGEN 35; BG HCO3 ACT 30.4 mmol/L (22.0-26.0); BG METHEMOGLOBIN 0.2 % (0.0-1.5); BG OXYGEN SATURATION 97.5 % (92.0-98.5); BG OXYHEMOGLOBIN 97.1 % (94.0-97.0); BG PH 7.447 (7.350-7.450); BG PO2 101.1 mmHg (75.0-100.0); BG PRESSURE SUPPORT 10; BG SAMPLE SITE RIGHT BRACHIAL; BG TOTAL HEMOGLOBIN 12.5 g/dL (12.0-18.0); BG VENT MODE MASK - BIPAP; BG VENT RATE 18 set
[2019-02-01] MEDS: METHYLPREDNISOLONE SOD SUCC 40 MG/ML VIAL IV SCH (21:01)
[2019-02-01] MEDS: GABAPENTIN 300MG CAPSULE PO SCH (21:02)
[2019-02-01] MEDS: INSULIN GLARGINE UD 100 UNITS/ML SYR SUBCUT SCH (22:50)
[2019-02-02] VITALS (9 sets, daily range): BP systolic 114–149; BP diastolic 63–86
[2019-02-02] MEDS: IPRATROPIUM/ALBUTEROL 0.5-3(2.5)MG/3ML NEB HHN SCH ×5 (04:03→21:33)
[2019-02-02 05:58] LABS: BASOPHILS % 0.5 % (0.0-2.0); EOSINOPHILS % 0.1 % (0.0-5.0); HEMATOCRIT. 36.4 % (36.0-48.0); HEMOGLOBIN. 11.8 g/dL (12.0-16.0); LYMPHOCYTES % 7.7 % (20.0-50.0); MEAN CORPUSCULAR HEMOGLOBIN 28.9 pg (28.0-32.0); MEAN CORPUSCULAR VOLUME 89.5 fL (81.0-99.0); MEAN PLATELET VOLUME 8.6 fl (7.4-10.4); MONOCYTES % 2.5 % (2.0-8.0); NEUTROPHILS % 89.2 % (40.0-76.0); PLATELET 454 x1000/uL (130-400); RED BLOOD CELL COUNT 4.06 mill/uL (4.2-5.4); RED CELL DISTRIBUTION WIDTH 15.3 % (11.6-14.6)
[2019-02-02] MEDS: BLOOD SUGAR DIAGNOSTIC STRIP TEST SCH ×4 (06:40→20:50)
[2019-02-02] MEDS: BACLOFEN 10MG TABLET PO SCH ×3 (06:40→22:35)
[2019-02-02] MEDS: METHYLPREDNISOLONE SOD SUCC 40 MG/ML VIAL IV SCH ×3 (06:40→22:34)
[2019-02-02] MEDS: INSULIN LISPRO 100 UNITS/ML SUBCUT SCH ×7 (06:41→20:49)
[2019-02-02 06:45] LABS: CHLORIDE 102 mEq/L (98-107)
[2019-02-02 06:51] LABS: PHOSPHORUS 3.1 mg/dL (2.5-4.9)
[2019-02-02] MEDS: LORAZEPAM 1MG TABLET PO SCH (09:21)
[2019-02-02] MEDS: CELECOXIB 100MG CAPSULE PO SCH ×2 (09:21→20:47)
[2019-02-02] MEDS: APIXABAN 5 MG TABLET PO SCH ×2 (09:21→18:06)
[2019-02-02] MEDS: FAMOTIDINE 20MG TABLET PO SCH (09:21)
[2019-02-02] MEDS: DULOXETINE HCL 30MG DR CAPSULE PO SCH (09:21)
[2019-02-02] MEDS: NYSTATIN POWDER 15GM TOP SCH ×2 (09:22→17:00)
[2019-02-02] MEDS: BUSPIRONE HCL 5MG TABLET PO SCH ×2 (10:19→20:47)
[2019-02-02] MEDS ORDERED: MAGNESIUM 2 G PREMIX 50 ML IV ONE (10:45)
[2019-02-02] MEDS ORDERED: MAGNESIUM SULFATE 3 GM in SODIUM CHLORIDE 0.9% 100 ML IV SCH (12:00)
[2019-02-02] MEDS: DIGOXIN 125MCG TABLET PO SCH (18:06)
[2019-02-02] MEDS: GABAPENTIN 300MG CAPSULE PO SCH (20:47)
[2019-02-02] MEDS: INSULIN GLARGINE UD 100 UNITS/ML SYR SUBCUT SCH (22:36)
[2019-02-03] VITALS (12 sets, daily range): BP systolic 123–155; BP diastolic 57–83
[2019-02-03] MEDS: IPRATROPIUM/ALBUTEROL 0.5-3(2.5)MG/3ML NEB HHN SCH ×6 (00:06→20:48)
[2019-02-03] MEDS: METHYLPREDNISOLONE SOD SUCC 40 MG/ML VIAL IV SCH ×3 (06:20→21:09)
[2019-02-03] MEDS: BACLOFEN 10MG TABLET PO SCH ×3 (06:20→21:10)
[2019-02-03] MEDS: INSULIN LISPRO 100 UNITS/ML SUBCUT SCH ×7 (06:22→21:00)
[2019-02-03] MEDS: BLOOD SUGAR DIAGNOSTIC STRIP TEST SCH ×4 (06:23→21:10)
[2019-02-03 06:31] LABS: BASOPHILS % 0.4 % (0.0-2.0); HEMATOCRIT. 37.9 % (36.0-48.0); HEMOGLOBIN. 12.1 g/dL (12.0-16.0); LYMPHOCYTES % 8.3 % (20.0-50.0); MEAN CORPUSCULAR HEMOGLOBIN 28.9 pg (28.0-32.0); MEAN CORPUSCULAR VOLUME 90.5 fL (81.0-99.0); MEAN PLATELET VOLUME 8.9 fl (7.4-10.4); MONOCYTES % 3.2 % (2.0-8.0); NEUTROPHILS % 88.1 % (40.0-76.0); PLATELET 466 x1000/uL (130-400); RED BLOOD CELL COUNT 4.19 mill/uL (4.2-5.4); RED CELL DISTRIBUTION WIDTH 15.4 % (11.6-14.6)
[2019-02-03 06:44] LABS: CHLORIDE 102 mEq/L (98-107)
[2019-02-03 06:56] LABS: PHOSPHORUS 3.5 mg/dL (2.5-4.9)
[2019-02-03] MEDS: LORAZEPAM 1MG TABLET PO SCH (08:47)
[2019-02-03] MEDS: CELECOXIB 100MG CAPSULE PO SCH ×2 (08:47→21:10)
[2019-02-03] MEDS: FAMOTIDINE 20MG TABLET PO SCH (08:47)
[2019-02-03] MEDS: NYSTATIN POWDER 15GM TOP SCH ×2 (08:47→17:47)
[2019-02-03] MEDS: DULOXETINE HCL 30MG DR CAPSULE PO SCH (08:47)
[2019-02-03] MEDS: APIXABAN 5 MG TABLET PO SCH ×2 (08:47→17:47)
[2019-02-03] MEDS: DIGOXIN 125MCG TABLET PO SCH (17:47)
[2019-02-03] MEDS: GABAPENTIN 300MG CAPSULE PO SCH (21:10)
[2019-02-03] MEDS: INSULIN GLARGINE UD 100 UNITS/ML SYR SUBCUT SCH (21:10)
[2019-02-04] VITALS (10 sets, daily range): BP systolic 108–142; BP diastolic 57–81
[2019-02-04] MEDS: IPRATROPIUM/ALBUTEROL 0.5-3(2.5)MG/3ML NEB HHN SCH ×6 (00:24→20:32)
[2019-02-04] MEDS: METHYLPREDNISOLONE SOD SUCC 40 MG/ML VIAL IV SCH ×3 (06:10→21:17)
[2019-02-04] MEDS: BACLOFEN 10MG TABLET PO SCH ×3 (06:10→21:18)
[2019-02-04] MEDS: INSULIN LISPRO 100 UNITS/ML SUBCUT SCH ×7 (07:30→21:19)
[2019-02-04] MEDS: BLOOD SUGAR DIAGNOSTIC STRIP TEST SCH ×4 (08:16→21:18)
[2019-02-04] MEDS: APIXABAN 5 MG TABLET PO SCH ×2 (08:32→18:59)
[2019-02-04] MEDS: LORAZEPAM 1MG TABLET PO SCH (08:32)
[2019-02-04] MEDS: CELECOXIB 100MG CAPSULE PO SCH ×2 (08:33→21:17)
[2019-02-04] MEDS: FAMOTIDINE 20MG TABLET PO SCH (08:33)
[2019-02-04] MEDS: DULOXETINE HCL 30MG DR CAPSULE PO SCH (09:28)
[2019-02-04] MEDS: NYSTATIN POWDER 15GM TOP SCH ×2 (10:11→18:56)
[2019-02-04] MEDS: DIGOXIN 125MCG TABLET PO SCH (18:50)
[2019-02-04] MEDS: GABAPENTIN 300MG CAPSULE PO SCH (21:17)
[2019-02-04] MEDS: INSULIN GLARGINE UD 100 UNITS/ML SYR SUBCUT SCH (21:18)
[2019-02-05] VITALS (12 sets, daily range): BP systolic 116–156; BP diastolic 37–92
[2019-02-05] MEDS: IPRATROPIUM/ALBUTEROL 0.5-3(2.5)MG/3ML NEB HHN SCH ×6 (00:25→20:44)
[2019-02-05] MEDS: BACLOFEN 10MG TABLET PO SCH ×2 (05:56→14:04)
[2019-02-05] MEDS: METHYLPREDNISOLONE SOD SUCC 40 MG/ML VIAL IV SCH ×2 (05:56→14:04)
[2019-02-05] MEDS: BLOOD SUGAR DIAGNOSTIC STRIP TEST SCH ×3 (08:00→17:51)
[2019-02-05] MEDS: INSULIN LISPRO 100 UNITS/ML SUBCUT SCH ×6 (08:00→18:34)
[2019-02-05] MEDS: DULOXETINE HCL 30MG DR CAPSULE PO SCH (09:26)
[2019-02-05] MEDS: CELECOXIB 100MG CAPSULE PO SCH (09:27)
[2019-02-05] MEDS: FAMOTIDINE 20MG TABLET PO SCH (09:27)
[2019-02-05] MEDS: APIXABAN 5 MG TABLET PO SCH ×2 (09:27→17:54)
[2019-02-05] MEDS: LORAZEPAM 1MG TABLET PO SCH (09:27)
[2019-02-05] MEDS: NYSTATIN POWDER 15GM TOP SCH ×2 (09:28→17:56)
[2019-02-05] MEDS: DIGOXIN 125MCG TABLET PO SCH (17:54)
== END 2019-02-05 21:10 | DRG 193 ==
LOC: ER 06:26 → EDBEDREQSVC 09:28 → EDBEDREQ 09:28 → EDBEDREQTM 09:28 → 5EST 09:36 → EDBEDREQ 09:41 → EDBEDREQTM 09:41 → ENRESERV 10:12 → 5EST 02-04 13:51
PROVIDERS: ADMIT Internal Medicine; ATTEND Internal Medicine
PROC: 5A09357 Assistance with Respiratory Ventilation, Less than 24 Consecutive Hours, Continuous Positive Airway Pressure (ICD-10-PCS; 2019-01-22)
PROC: 5A09357 Assistance with Respiratory Ventilation, Less than 24 Consecutive Hours, Continuous Positive Airway Pressure (ICD-10-PCS; 2019-01-23)
PROC: 5A09357 Assistance with Respiratory Ventilation, Less than 24 Consecutive Hours, Continuous Positive Airway Pressure (ICD-10-PCS; 2019-01-24)
PROC: 5A09357 Assistance with Respiratory Ventilation, Less than 24 Consecutive Hours, Continuous Positive Airway Pressure (ICD-10-PCS; 2019-01-25)
PROC: 5A09357 Assistance with Respiratory Ventilation, Less than 24 Consecutive Hours, Continuous Positive Airway Pressure (ICD-10-PCS; 2019-01-26)
PROC: 02HV33Z Insertion of Infusion Device into Superior Vena Cava, Percutaneous Approach (ICD-10-PCS; principal; 2019-01-27)
PROC: B548ZZA Ultrasonography of Superior Vena Cava, Guidance (ICD-10-PCS; 2019-01-27)
PROC: 5A09357 Assistance with Respiratory Ventilation, Less than 24 Consecutive Hours, Continuous Positive Airway Pressure (ICD-10-PCS; 2019-01-27)
PROC: 5A09357 Assistance with Respiratory Ventilation, Less than 24 Consecutive Hours, Continuous Positive Airway Pressure (ICD-10-PCS; 2019-01-28)
PROC: 5A09357 Assistance with Respiratory Ventilation, Less than 24 Consecutive Hours, Continuous Positive Airway Pressure (ICD-10-PCS; 2019-01-30)
PROC: 5A09357 Assistance with Respiratory Ventilation, Less than 24 Consecutive Hours, Continuous Positive Airway Pressure (ICD-10-PCS; 2019-02-01)
PROC: 5A09357 Assistance with Respiratory Ventilation, Less than 24 Consecutive Hours, Continuous Positive Airway Pressure (ICD-10-PCS; 2019-02-02)
PROC: 5A09357 Assistance with Respiratory Ventilation, Less than 24 Consecutive Hours, Continuous Positive Airway Pressure (ICD-10-PCS; 2019-02-03)
DX: J18.9 Pneumonia, unspecified organism (principal); J96.20 Acute and chronic respiratory failure, unspecified whether with hypoxia or hypercapnia; J44.1 Chronic obstructive pulmonary disease with (acute) exacerbation; D68.59 Other primary thrombophilia; J44.0 Chronic obstructive pulmonary disease with (acute) lower respiratory infection; I42.0 Dilated cardiomyopathy; I48.2 Chronic atrial fibrillation; J20.9 Acute bronchitis, unspecified; E10.22 Type 1 diabetes mellitus with diabetic chronic kidney disease; F41.9 Anxiety disorder, unspecified; K21.9 Gastro-esophageal reflux disease without esophagitis; M06.9 Rheumatoid arthritis, unspecified; N18.9 Chronic kidney disease, unspecified; Z79.4 Long term (current) use of insulin; Z87.891 Personal history of nicotine dependence; Z95.0 Presence of cardiac pacemaker; Z88.6 Allergy status to analgesic agent; Z79.899 Other long term (current) drug therapy; Z98.891 History of uterine scar from previous surgery
CPT/HCPCS: 36415; 36569; 36600; 71045; 76937; 80048; 80162; 82375; 82805; 82962; 83605; 83735; 83880; 84100; 84484; 85651; 93005; 93306; 93970; 94640; 94660; 96365; 96375; 97110; 97116; 97162; 97166; 97168; 97530; 99285; A6261; C1725; C1893; C9113; J0456; J0696; J1160; J1650; J1815; J1940; J2543; J2920; J2930; J3475; J3490; J7040; J7050; J7060; J7512; J7611; J7620